=== PATIENT | male | born 1950 | race Caucasian/White ===

== ENCOUNTER 2025-05-12 09:04 | Inpatient (IN) | payer MEDICARE, SELFPAY ==
[2025-05-12] VITALS (11 sets, daily range): BP systolic 100–118; BP diastolic 58–66; PULSE 64–72; TEMP 36.3–36.8; O2SAT 96–100; BMI 25.3; BMI 25.4
--- NOTE | 2025-05-12 09:24 | XR_ITS ---
The [address] [address] Patient Name: THAO BRUCE MRN: [id number] date: 1950 Sex: M Assigned Patient Location: ER Current Patient Location: ED.MAIN Accession/Order Number: [id number] Exam Date: 05/12/2025 09:35 Report Date: 05/12/2025 10:06 At the request of: ЮЛИЯ REYES MD Procedure: XR chest 1V PORTABLE P ERECT CHEST 0916 hours CLINICAL HISTORY: Weakness COMPARISON: None There is slight elevation of the left hemidiaphragm with adjacent atelectasis or scarring. No consolidation is seen. There is slight blunting of the right lateral costophrenic angle and a trace amount of pleural fluid is not excluded without a lateral view. No pneumothorax is seen. The heart is within normal limits. There is no vascular congestion. The osseous structures are intact. There is mild endplate spurring. XR/XR chest 1V IMPRESSION: SLIGHTLY ELEVATED LEFT HEMIDIAPHRAGM WITH ADJACENT ATELECTASIS OR SCARRING. QUESTION OF MINIMAL RIGHT PLEURAL FLUID. Impression dictated by: Gretta Chu M.D. 05/12/2025 10:06 AM Dictation Location: [place] [address] Electronically authenticated by: [id number] Y Date: 05/12/2025 10:06
--- NOTE | 2025-05-12 09:24 | ECG_ITS ---
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 Measurements Intervals [place] Rate: 66 P: 50 MA: 154 QRS: 3 QRSD: 84 T: 36 QT: 394 QTc: 408 Interpretive Statements 1100 Sinus rhythm 9110 normal ECG No previous ECG available for comparison Electronically Signed On 05-12-2025 19:10:29 EST by REGIS SANTANA M.D.
--- NOTE | 2025-05-12 09:25 | ED.GENADUL1 ---
HPI HPI - General Adult General Chief complaint: Weakness Stated complaint: WEAKNESS Time Seen by Provider: 05/12/25 09:08 Source: patient and family Mode of arrival: Wheelchair Limitations: physical limitation History of Present Illness HPI narrative: 74-year-old male presents to the emergency department for a chief complaint of generalized weakness. He could not get up and walk last night. He complains of leg weakness. No fever or vomiting. His appetite has been poor. He has liver disease and is scheduled to see a liver transplant physician in [place]. There was no fall or injury. No complaints of dysuria or vomiting. Related Data Home Medications ?Medication ?Instructions ?Recorded ?Confirmed carvedilol 12.5 mg tablet 12.5 mg PO BID 05/12/25 05/12/25 cetirizine 10 mg capsule (All Day 10 mg PO DAILY PRN allergy symptoms 05/12/25 05/12/25 Allergy (cetirizine)) furosemide 40 mg tablet 40 mg PO DAILY 05/12/25 05/12/25 lactulose 20 gram oral packet 60 ml PO DAILY 05/12/25 05/12/25 metformin 500 mg tablet 500 mg PO BID 05/12/25 05/12/25 pantoprazole 40 mg tablet,delayed 40 mg PO BID 05/12/25 05/12/25 release primidone 50 mg tablet 25 mg PO .QHS 05/12/25 05/12/25 rifaximin 550 mg tablet (Xifaxan) 550 mg PO BID 05/12/25 05/12/25 spironolactone 100 mg tablet 100 mg PO DAILY 05/12/25 05/12/25 Allergies Allergy/AdvReac Type Severity Reaction Status Date / Time No Known Drug Allergies Allergy Verified 05/12/25 09:14 Review of Systems ROS Narrative A ten point review of systems is negative except as noted above. [facility] Medical History (Updated 05/12/25 @ 12:05 by Timur Bonner MD) Alcoholic cirrhosis of liver ?K70.30 - Alcoholic cirrhosis of liver without ascites (ICD-10) Social History Little interest or pleasure in doing things: not at all Feeling down, depressed, or hopeless: not at all Exam Narrative Exam Narrative: Nurses note and vital signs reviewed General:The patient appears in no acute distress. Skin:Warm, dry, no pallor noted.There is no rash noted. Head:Normocephalic, atraumatic Eye: Normal conjunctiva, no drainage Ears, Nose, Mouth, and Throat: oral mucosa is somewhat dry. Cardiovascular:Regular Rate and Rhythm Respiratory:Patient is in no distress, no accessory muscle use, lungs are clear to auscultation, no wheezing, rales or rhonchi Back:non-tender GI: Abdomen is mildly distended. He has 2 easily reducible ventral hernias present. There does not seem to be any tenderness. Musculoskeletal: The patient has no evidence of calf tenderness, no pitting edema, symmetrical pulses noted bilaterally Neurological:A&O, normal speech Psychiatric:Cooperative Constitutional Vital Signs, click to edit/add: Last Vital Signs Temp 98.2 F 05/12/25 09:15 Pulse 69 05/12/25 09:15 Resp 18 05/12/25 09:15 BP 118/66 05/12/25 09:15 Pulse Ox 98 05/12/25 09:15 O2 Del Method Room Air 05/12/25 09:15 Course Vital Signs Vital signs: Vital Signs Temperature 98.2 F 05/12/25 09:15 Pulse Rate 69 05/12/25 09:15 Respiratory Rate 18 05/12/25 09:15 Blood Pressure 118/66 05/12/25 09:15 Pulse Oximetry 98 05/12/25 09:15 Oxygen Delivery Method Room Air 05/12/25 09:15 Temperature 98.2 F 05/12/25 09:15 Pulse Rate 69 05/12/25 09:15 Respiratory Rate 18 05/12/25 09:15 Blood Pressure 118/66 05/12/25 09:15 Pulse Oximetry 98 05/12/25 09:15 Oxygen Delivery Method Room Air 05/12/25 09:15 Medical Decision Making [facility] Narrative Medical decision making narrative: The patient presents with generalized weakness. He was unable to get out of bed last night and his family had difficulty getting him into the car to bring him here. The patient has a long standing issues with sciatica of the left leg and CT of the lumbar spine is pending. His workup is negative. WBC is 9.3 and BUN and creatinine are 41 and 1.3. Ammonia level is 33. LFTs are not significantly elevated and his troponin was negative. His states that she cannot take him home because he cannot walk and the patient will be admitted for observation. Findings were discussed thoroughly. Differential Diagnosis Differential Diagnosis: Anemia, acute kidney injury, dehydration, liver failure Lab Data Lab results reviewed: Yes I reviewed the patient's lab results Labs: Lab Results 05/12/25 05/12/25 05/12/25 Range/Units 09:22 10:29 11:25 WBC 9.3 (4.0-11.0) 10^3/uL RBC 3.12 L (4.70-6.10) 10^6/uL Hgb 10.3 L (14.0-18.0) g/dL Hct 29.8 L (42.0-54.0) % MCV 95.5 H (80.0-94.0) fL MCH 33.0 (25.9-34.0) pg MCHC 34.6 (29.9-35.2) g/dL RDW 14.2 (11.0-15.0) % Plt Count 73 L (150-450) 10^3/uL MPV 11.9 (9.5-13.5) fL Neut % (Auto) 85.2 H (43.0-75.0) % Lymph % (Auto) 5.4 L (20.5-60.0) % [place] % (Auto) 8.0 (1.7-12.0) % Eos % (Auto) 0.0 L (0.9-7.0) % Baso % (Auto) 0.2 (0.2-2.0) % Neut # (Auto) 7.9 H (1.4-6.5) 10^3/uL Lymph # (Auto) 0.5 L (1.2-3.8) 10^3/uL [place] # (Auto) 0.7 (0.3-0.8) 10^3/uL Eos # (Auto) 0.0 (0.0-0.7) 10^3/uL Baso # (Auto) 0.0 (0.0-0.1) 10^3/uL Abs Immat Gran (auto) 0.11 H (0.00-0.03) 10^3/uL Imm/Tot Granulo (auto) 1.2 H (0.0-0.5) % Sodium 124 L* (136-145) mmol/L Potassium 5.6 H (3.5-5.1) mmol/L Chloride 95 L (98-107) mmol/L Carbon Dioxide 20.2 L (21.0-32.0) mmol/L Anion Gap 14.4 BUN 41.0 H (7.0-18.0) mg/dL Creatinine 1.31 H (0.70-1.30) mg/dL Est GFR ( Amer) >60 (>=60 mL/min/1.73m^2) Est GFR (Non-Af Amer) 53 L (>=60 mL/min/1.73m^2) BUN/Creatinine Ratio 31.3 Glucose 183 H (74-106) mg/dL Calcium 8.7 (8.5-10.1) mg/dL Total Bilirubin 2.6 H (0.2-1.0) mg/dL Direct Bilirubin 1.1 H* (0.0-0.2) mg/dL AST 40 H (15-37) U/L ALT 43 (16-63) U/L Alkaline Phosphatase 175 H (46-116) U/L Ammonia 33 H (11-32) umol/L Troponin I High Sens 6.2 (4.0-76.1) pg/mL Total Protein 7.3 (6.4-8.2) g/dL Albumin 1.9 L (3.4-5.0) g/dL Globulin 5.4 g/dL Albumin/Globulin Ratio 0.4 Amylase 56 (25-115) U/L Lipase 66.0 (16.0-77.0) U/L Urine Color Yellow (YELLOW) Urine Clarity Clear (CLEAR) Urine pH 6.0 (5.0-9.0) Ur Specific [place] 1.020 (1.005-1.025) Urine Protein Negative (NEG/TRACE) mg/dL Urine Glucose (UA) Negative (NEGATIVE) mg/dL Urine Ketones Negative (NEGATIVE) mg/dL Urine Occult Blood Negative (NEGATIVE) Urine Nitrite Negative (NEGATIVE) Urine Bilirubin Negative (NEGATIVE) Urine Urobilinogen 0.2 (0.2-1.0) EU/dL Ur Leukocyte Esterase Negative (NEGATIVE) Urine RBC 0-2 (0-2) #/HPF Urine WBC 0-2 A (NONE SEEN) #/HPF Ur Squamous Epith Cells Rare (NONE/RARE) #/LPF Urine Crystals None seen (None Seen) #/HPF Urine Bacteria None seen (NONE SEEN) #/HPF Urine Casts Seen A (NONE SEEN) #/LPF Hyaline Casts Rare Urine Mucus None seen (NONE SEEN) Imaging Data Chest x-ray: Radiologist's impression: ITS Impressions Chest X-Ray 05/12/25 09:24 IMPRESSION: SLIGHTLY ELEVATED LEFT HEMIDIAPHRAGM WITH ADJACENT ATELECTASIS OR SCARRING. QUESTION OF MINIMAL RIGHT PLEURAL FLUID. Impression dictated by: Gretta Chu M.D. 05/12/2025 10:06 AM Dictation Location: [place] [address] Electronically authenticated by: [id number] Y Date: 05/12/2025 10:06 ECG Data Attestation: I personally reviewed and interpreted this ECG as follows: (EKG on my interpretation shows sinus rhythm with rate of 66 and no acute change) Discharge Plan Discharge Chief Complaint: Weakness Clinical Impression: Generalized weakness, Hyponatremia Patient Disposition: Admitted as Observation Time of Disposition Decision: 12:02 Condition: Fair
--- NOTE | 2025-05-12 09:36 | PC.NURSE ---
pt now willing to get into gown, warm banket given
[2025-05-12 09:41] LABS: Hematocrit 29.8 % (42.0-54.0); Hemoglobin 10.3 g/dL (14.0-18.0); Immature Granulocytes Abs Auto 0.11 10^3/uL (0.00-0.03); Immature Granulocytes Pct Auto 1.2 % (0.0-0.5); Lymphocytes Absolute Auto 0.5 10^3/uL (1.2-3.8); Mean Corpuscular HGB Conc 34.6 g/dL (29.9-35.2); Mean Corpuscular Hemoglobin 33.0 pg (25.9-34.0); Mean Corpuscular Volume 95.5 fL (80.0-94.0); Red Blood Count 3.12 10^6/uL (4.70-6.10); White Blood Count 9.3 10^3/uL (4.0-11.0)
[2025-05-12 09:52] LABS: Anion Gap 14.4; Blood Urea Nitrogen 41.0 mg/dL (7.0-18.0); Calcium 8.7 mg/dL (8.5-10.1); Carbon Dioxide 20.2 mmol/L (21.0-32.0); Chloride 95 mmol/L (98-107); Estimated GFR (African America >60 (>=60 mL/min/1.73m^2); Estimated GFR (Non-African Ame 53 (>=60 mL/min/1.73m^2); Glucose 183 mg/dL (74-106); Potassium 5.6 mmol/L (3.5-5.1)
[2025-05-12 10:04] LABS: Platelet Count 73 10^3/uL (150-450)
[2025-05-12 10:06] LABS: Alanine Aminotransferase 43 U/L (16-63); Albumin Globulin Ratio 0.4; Albumin Level 1.9 g/dL (3.4-5.0); Alkaline Phosphatase 175 U/L (46-116); Amylase 56 U/L (25-115); Aspartate Amino Transferase 40 U/L (15-37); Globulin 5.4 g/dL; Lipase 66.0 U/L (16.0-77.0); Total Protein 7.3 g/dL (6.4-8.2)
[2025-05-12 10:14] LABS: Sodium 124 mmol/L (136-145)
[2025-05-12 10:47] LABS: Ammonia 33 umol/L (11-32)
--- NOTE | 2025-05-12 11:07 | PC.NURSE ---
pt resting comfortably in bed, warm blanket given. using the urinal
[2025-05-12 11:32] LABS: Glucose Urine UA NEGATIVE (NEGATIVE)
[2025-05-12 11:42] LABS: Cast Seen? SEEN #/LPF (NONE SEEN); Crystals Seen? None Seen #/HPF (None Seen)
--- NOTE | 2025-05-12 12:03 | CT_ITS ---
The [place] [address] Patient Name: THAO BRUCE MRN: [id number] date: 1950 Sex: M Assigned Patient Location: ER Current Patient Location: Accession/Order Number: [id number] Exam Date: 05/12/2025 12:11 Report Date: 05/12/2025 13:04 At the request of: ЮЛИЯ REYES MD Procedure: CT lumbar spine wo con CT lumbar spine wo con 05/12/2025 12:16 PM History:Fall 2 weeks ago. Weakness. TECHNIQUE: Multi detector CT axial slices of the lumbar spine were obtained without IV contrast. Volumetric acquisition sagittal, coronal, and 3-D reconstructions were performed and reviewed on a separate workstation. CT was performed with one or more of the following dose reduction techniques: Automated exposure control, adjustment of the mA and/or kV according to patient size, or use of iterative reconstruction technique. COMPARISON: None FINDINGS: Vertebral body heights appear maintained. No fracture. Grade 1 spondylolisthesis of L5 on S1 due to bilateral pars defects with severe disc space narrowing. Scattered endplate and facet joint degenerative changes with moderate disc space narrowing L4-L5. Transverse processes appear unremarkable. SI joints demonstrate degenerative change. No paraspinal mass. Retroperitoneum demonstrates a partially visualized cyst involving the right kidney. CT/CT lumbar spine wo con IMPRESSION: Degenerative changes involving the lumbar spine worst at L4-L5 and L5-S1 without acute bony process. Impression dictated by: Asad Hewitt Jr., D.OCorina 05/12/2025 1:04 PM Dictation Location: [place] [address] Electronically authenticated by: [id number] Y Date: 05/12/2025 13:04
--- NOTE | 2025-05-12 14:19 | CA_ITS ---
Patient Name: THAO BRUCE MR#: [id number] : 1950 Exam Date: 05/12/2025 Ordering Doctor: CAMERON ARRIAGA ECHOCARDIOGRAM REPORT PROCEDURE: CA ECHO DOPPLER COMPLETE INDICATIONS: Cirrhosis COMPARISON: None. DESCRIPTION: COMPLETE ECHOCARDIOGRAM Real-time transthoracic echocardiography with 2D, M-mode, spectral and color flow Doppler performed. QUALITY: Technical quality was good. LEFT VENTRICLE: Normal chamber size. Normal left ventricular wall thickness. LV EF: Global left ventricular systolic function is normal; visually estimated ejection fraction is 60 to 65%. Unable to assess regional wall motion abnormalities; consider contrast study for better delineation of endocardial borders. DIASTOLIC: Diastolic function is indeterminate. ATRIAL SEPTUM: Inadequately seen. LEFT ATRIUM: Mild dilatation. RIGHT ATRIUM: Mild dilatation. RIGHT VENTRICLE: Normal chamber size. Normal systolic function. TRICUSPID VALVE: Normal mobility and thickness. No stenosis with mild regurgitation. Doppler studies reveal mildly (35-45) elevated right-sided pressures. RVSP 36 mmHg MITRAL VALVE: Normal mobility and thickness. No evidence of mitral valve stenosis. There is no mitral annular calcification. No mitral regurgitation. AORTIC VALVE: Normal trileaflet appearance. Thickened aortic valve. Mildly diminished mobility. No evidence of aortic valve stenosis. No aortic regurgitation. AORTIC ROOT: Normal diameter and appearance. PULMONIC VALVE: Normal thickness and mobility. No stenosis. No regurgitation. PERICARDIUM: No evidence of pericardial effusion. IVC: Not well visualized. CONCLUSION: 1. Global ventricular systolic function is normal; visually estimated ejection fraction is 60 to 65% 2. The right ventricle is normal in size and systolic function 3. Biatrial dilatation 4. Mild tricuspid regurgitation 5. Mildly elevated right ventricular systolic pressure; RVSP 36 mmHg Adult Echocardiography Procedure Report Left Ventricle LVEDD (3.7 - 5.6 cm): 5.08 cm LVESD (2.2 - 4.0 cm): 3.41 cm LVIVS thickness (0.6 - 1.2 cm): 1.03 cm LVPW thickness (0.5 - 1.0 cm): 1.02 cm e': 0.10 m/s E - e': 5.05 LVOT Max Gradient: 2.03 mm[Hg] LVOT Area (cm2): 0.71 m/s Peak Velocity (LVOT): 0.71 m/s Mean Velocity (LVOT): 0.49 m/s LVOT Diameter 2.30 cm Left Atrium LA Volume Index (2D A2C): 36.56 ml/m2 Left Atrium Systolic Dimension: 3.64 cm Mitral Valve MV E to A Ratio: 0.75 Mitral Valve A-Wave Peak Velocity: 0.69 m/s Mitral Valve E-Wave Peak Velocity: 0.52 m/s Right Ventricle Aorta AO Root Diam: 3.35 cm Aortic Valve AoV Area (Peak Francisco Javier): 2.07 cm2, 2.07 cm2 AoV Area (VTI): 2.77 cm2, 2.77 cm2 Peak Velocity(Antegrade Flow): 1.43 m/s Peak Gradient(Antegrade Flow): 8.23 mm[Hg] Mean Velocity(Antegrade Flow): 0.94 m/s Mean Gradient(Antegrade Flow): 4.10 mm[Hg] Velocity Time Integral: 28.48 cm Tricuspid Valve Peak Velocity (Regurgitant Flow): 2.43 m/s, 2.89 m/s Pulmonic Valve Mean Gradient: 1.63 mm[Hg] Mean Velocity: 0.60 m/s Peak Velocity: 0.88 m/s Peak Gradient: 3.06 mm[Hg] Right Atrium Right Atrium Systolic Pressure: 45.28 ml, 45.28 ml Dictated by: José Miguel Cueva M.D. on 05/12/2025 at 17:06 Approved by: José Miguel Cueva M.D. on 05/12/2025 at 17:10
[2025-05-12 15:21] LABS: Magnesium 1.7 mg/dL (1.8-2.4)
[2025-05-12] MEDS: FUROSEMIDE 20 MG/2 ML VIAL IVP (16:25)
[2025-05-12] MEDS: SODIUM CHLORIDE 1,000 MG TABLET 2000 MG PO ×2 (16:25→21:06)
[2025-05-12] MEDS: SODIUM POLYSTYRENE SULFON 15 GM/60 ML ORAL.SUSP KAYEXALATE PO (16:26)
[2025-05-12] MEDS: ALBUMIN HUMAN 25 GM/100 ML PREMIX IV (16:46)
[2025-05-12] MEDS: MIDODRINE HCL 5 MG TABLET 10 MG PO (16:47)
[2025-05-12] MEDS: MIDODRINE HCL 5 MG TABLET PO (18:04)
[2025-05-12] MEDS: CARVEDILOL 3.125 MG TABLET PO (21:05)
[2025-05-12] MEDS: LACTULOSE 10 GM/15 ML UD CUP 20 GM PO (21:05)
[2025-05-12] MEDS: PRIMIDONE 50 MG TABLET 25 MG PO (21:05)
[2025-05-12] MEDS: MAGNESIUM SULFATE IN WATER 2 GM/50 ML PREMIX IV (21:06)
[2025-05-12] MEDS: RIFAXIMIN 550 MG TABLET PO (21:06)
[2025-05-12] MEDS: PANTOPRAZOLE SODIUM 40 MG TABLET.DR PO (21:06)
[2025-05-12 21:59] LABS: Anion Gap 10.1; Blood Urea Nitrogen 39.0 mg/dL (7.0-18.0); Calcium 8.7 mg/dL (8.5-10.1); Carbon Dioxide 22.3 mmol/L (21.0-32.0); Chloride 96 mmol/L (98-107); Estimated GFR (African America >60 (>=60 mL/min/1.73m^2); Estimated GFR (Non-African Ame >60 (>=60 mL/min/1.73m^2); Glucose 200 mg/dL (74-106); Potassium 4.4 mmol/L (3.5-5.1)
[2025-05-12 22:02] LABS: Sodium 124 mmol/L (136-145)
[2025-05-13] VITALS (20 sets, daily range): BP systolic 117–138; BP diastolic 61–70; PULSE 60–90; TEMP 36.8–37.2; O2SAT 94–97
[2025-05-13 00:34] LABS: A. calcoaceticus-baumannii Cpx NOT DETECTED (NOT DETECTE); Bacteroides fragilis NOT DETECTED (NOT DETECTE); Enterobacterales NOT DETECTED (NOT DETECTE); Enterococcus faecalis NOT DETECTED (NOT DETECTE); Enterococcus faecium NOT DETECTED (NOT DETECTE); Klebsiella aerogenes NOT DETECTED (NOT DETECTE); Klebsiella pneumoniae group NOT DETECTED (NOT DETECTE); Proteus spp. NOT DETECTED (NOT DETECTE); Salmonella spp. NOT DETECTED (NOT DETECTE); Source BLOOD; Staphylococcus epidermidis NOT DETECTED (NOT DETECTE); Staphylococcus lugdunensis NOT DETECTED (NOT DETECTE); Staphylococcus spp. NOT DETECTED (NOT DETECTE); Streptococcus pyogenes NOT DETECTED (NOT DETECTE)
[2025-05-13 00:35] LABS: Candida auris NOT DETECTED (NOT DETECTE); Candida glabrata NOT DETECTED (NOT DETECTE); Serratia marcescens NOT DETECTED (NOT DETECTE); Stenotrophomonas maltophilia NOT DETECTED (NOT DETECTE)
[2025-05-13 02:04] LABS: Streptococcus spp. DETECTED (NOT DETECTE)
[2025-05-13] MEDS: VANCOMYCIN HCL 1,250 MG in 0.9 % SODIUM CHLORIDE 250 ML 166.667 MG IV (04:48)
[2025-05-13] MEDS: LACTULOSE 10 GM/15 ML UD CUP 20 GM PO ×3 (05:56→22:55)
[2025-05-13] MEDS: SODIUM CHLORIDE 1,000 MG TABLET 2000 MG PO ×3 (05:57→22:54)
[2025-05-13 06:39] LABS: Hematocrit 25.4 % (42.0-54.0); Hemoglobin 9.1 g/dL (14.0-18.0); Mean Corpuscular HGB Conc 35.8 g/dL (29.9-35.2); Mean Corpuscular Hemoglobin 33.6 pg (25.9-34.0); Mean Corpuscular Volume 93.7 fL (80.0-94.0); Platelet Count 56 10^3/uL (150-450); Red Blood Count 2.71 10^6/uL (4.70-6.10); White Blood Count 5.5 10^3/uL (4.0-11.0)
[2025-05-13 06:55] LABS: INR 1.50; Prothrombin Time 15.3 sec (9.0-11.6)
[2025-05-13 07:09] LABS: Alanine Aminotransferase 43 U/L (16-63); Albumin Globulin Ratio 0.4; Albumin Level 1.9 g/dL (3.4-5.0); Alkaline Phosphatase 133 U/L (46-116); Anion Gap 9.4; Aspartate Amino Transferase 37 U/L (15-37); Blood Urea Nitrogen 34.0 mg/dL (7.0-18.0); Calcium 8.4 mg/dL (8.5-10.1); Carbon Dioxide 24.2 mmol/L (21.0-32.0); Chloride 97 mmol/L (98-107); Estimated GFR (African America >60 (>=60 mL/min/1.73m^2); Estimated GFR (Non-African Ame >60 (>=60 mL/min/1.73m^2); Globulin 4.6 g/dL; Glucose 147 mg/dL (74-106); Magnesium 2.0 mg/dL (1.8-2.4); Potassium 4.6 mmol/L (3.5-5.1); Sodium 126 mmol/L (136-145); Thyroid Stimulating Hormone 2.261 uIU/mL (0.358-3.740); Total Protein 6.5 g/dL (6.4-8.2)
--- NOTE | 2025-05-13 08:00 | ECG_ITS ---
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 Measurements Intervals [place] Rate: 66 P: 37 SD: 157 QRS: -7 QRSD: 110 T: 54 QT: 416 QTc: 439 Interpretive Statements SINUS RHYTHM LOW QRS VOLTAGE IN PRECORDIAL LEADS [QRS DEFLECTION < 1.0 mV IN CHEST LEADS] NONSPECIFIC T-WAVE ABNORMALITY Abnormal ECG Compared to ECG 05/12/2025 09:17:38 Low QRS voltage now present T-wave abnormality now present Electronically Signed On 05-13-2025 8:48:52 EST by REGIS SANTANA M.D.
[2025-05-13] MEDS: MIDODRINE HCL 5 MG TABLET PO ×3 (08:16→16:19)
[2025-05-13] MEDS: PANTOPRAZOLE SODIUM 40 MG TABLET.DR PO ×2 (08:16→22:55)
[2025-05-13] MEDS: CARVEDILOL 3.125 MG TABLET PO ×2 (08:16→22:54)
[2025-05-13] MEDS: RIFAXIMIN 550 MG TABLET PO ×2 (08:16→22:54)
--- NOTE | 2025-05-13 09:44 | PM.HP ---
HPI H&P: HPI History of Present Illness Chief complaint: WEAKNESS GENERALIZED WEAKNESS HYPONATREMIA Narrative: Mr. Sandoval is a 74-year-old gentleman who came to the emergency room not feeling well. Progressive weakness and fatigue over the last few days. Patient is known to have liver cirrhosis believed to be caused by previous heavy alcohol consumption. Patient is on typical medication for liver cirrhosis. Patient was found to have hyponatremia with a sodium level at 124. Patient also was found to have hypokalemia with potassium at 5.6, degree of metabolic acidosis and TATYANA which may be contributing to his generalized weakness and subjective fatigue and sickness. Blood cultures completed in the emergency room department came back positive for Streptococcus around 4 AM. Patient was started on vancomycin and ceftriaxone. Patient denies any chest or abdominal pain. No nausea or vomiting. Loss of appetite. Opioid HPI Opioid Management Most Recent Pain and Opioid Data: Last Pain Assessment Today, 09:00 Last ORT Total Score 3 05/12/25, 13:09 Last ORT Risk Category Low Risk 05/12/25, 13:09 [facility] Medical History (Updated 05/12/25 @ 12:05 by Timur Bonner MD) Alcoholic cirrhosis of liver ?K70.30 - Alcoholic cirrhosis of liver without ascites (ICD-10) Social History Highest level of school completed/degree received: high school graduate Little interest or pleasure in doing things: not at all Feeling down, depressed, or hopeless: not at all Meds Home Medications and Allergies Home Medications ?Medication ?Instructions ?Recorded ?Confirmed ?Type benzonatate 100 mg capsule 100 mg PO TID PRN cough 05/12/25 05/12/25 History carvedilol 3.125 mg tablet (Coreg) 3.125 mg PO BID 05/12/25 05/12/25 History cetirizine 10 mg capsule (All Day 10 mg PO DAILY PRN allergy symptoms 05/12/25 05/12/25 History Allergy (cetirizine)) furosemide 40 mg tablet 40 mg PO DAILY 05/12/25 05/12/25 History lactulose 20 gram oral packet 30 ml PO TID 05/12/25 05/12/25 History metformin 500 mg tablet 500 mg PO BID 05/12/25 05/12/25 History nystatin 100,000 unit/gram topical 1 applic topical DAILY 05/12/25 05/12/25 History powder pantoprazole 40 mg tablet,delayed 40 mg PO BID 05/12/25 05/12/25 History release prednisone 20 mg tablet 60 mg PO DAILY 05/12/25 05/12/25 History primidone 50 mg tablet 25 mg PO .QHS 05/12/25 05/12/25 History rifaximin 550 mg tablet (Xifaxan) 550 mg PO BID 05/12/25 05/12/25 History spironolactone 100 mg tablet 100 mg PO DAILY 05/12/25 05/12/25 History Allergies Allergy/AdvReac Type Severity Reaction Status Date / Time No Known Drug Allergies Allergy Verified 05/12/25 09:14 Exam Narrative Exam Narrative: [pt is awake and alert. oriented to place, time and person, patient is cachectic and frail in appearance. HEENT: Pale conjunctiva and NL buccal mucosa. Bitemporal muscle wasting Neck: Supple, no tenderness Endocrine: No Thyromegaly. Vascular: No JVD or carotid bruit. Lymphatic: No cervical lymphadenopathy. Chest: CTA no DTP. Heart RRR, no extra sound or murmur. Abd: Soft, no tenderness, no rebound and no rigidity. Increase abd girth therefore clinically I could not exclude the possibility of intra abd mass or organomegaly. LE: No cyanosis or clubbing, no varices or edema. Upper and lower extremities muscle wasting and atrophy. Neuro: A A O. Nl speech, cognition is slightly impaired. Patient is able to answer yes/no questions and engage in simple conversation. Unable to engage in complex conversation. He is able to move his extremities symmetrically. []] Constitutional Vital Signs, click to edit/add: Last Vital Signs Temp 98.9 F 05/13/25 08:00 Pulse 73 05/13/25 08:00 Resp 18 05/13/25 08:00 BP 118/65 05/13/25 08:16 Pulse Ox 95 05/13/25 08:00 O2 Del Method Room Air 05/13/25 08:00 Results Labs Labs: Short CBC 05/12/25 05/13/25 Range/Units 09:22 06:02 WBC 9.3 5.5 (4.0-11.0) 10^3/uL Hgb 10.3 L 9.1 L (14.0-18.0) g/dL Hct 29.8 L 25.4 L (42.0-54.0) % Plt Count 73 L 56 L (150-450) 10^3/uL BMP 05/12/25 05/12/25 05/13/25 09:22 21:33 06:02 Sodium 124 L* 124 L* 126 L Potassium 5.6 H 4.4 4.6 Chloride 95 L 96 L 97 L Carbon Dioxide 20.2 L 22.3 24.2 BUN 41.0 H 39.0 H 34.0 H Creatinine 1.31 H 1.03 1.04 Glucose 183 H 200 H 147 H Calcium 8.7 8.7 8.4 L Liver Function 05/12/25 05/13/25 Range/Units 09:22 06:02 Total Bilirubin 2.6 H 2.2 H (0.2-1.0) mg/dL Direct Bilirubin 1.1 H* 1.1 H* (0.0-0.2) mg/dL AST 40 H 37 (15-37) U/L ALT 43 43 (16-63) U/L Alkaline Phosphatase 175 H 133 H (46-116) U/L Albumin 1.9 L 1.9 L (3.4-5.0) g/dL Urine 05/12/25 Range/Units 11:25 Urine Color Yellow (YELLOW) Urine Clarity Clear (CLEAR) Urine pH 6.0 (5.0-9.0) Ur Specific [place] 1.020 (1.005-1.025) Urine Protein Negative (NEG/TRACE) mg/dL Urine Glucose (UA) Negative (NEGATIVE) mg/dL Assessment and Plan Assessment and Plan (1) Hyponatremia: (2) Generalized weakness: Plan Hyponatremia which is likely caused by aggressive diuresis. Hypovolemic hyponatremia. TATYANA and hyperkalemia as well as metabolic acidosis. All believed to be caused by aggressive diuresis. Patient is also on metformin that could have caused lactic acidosis I had accepted to admit patient to the medical floor. Requested TSH rule out hypothyroidism, cortisol level rule out adrenal insufficiency, urine and serum osmolality. Start patient on water restriction. Start the patient on sodium chloride tablet. The goal is for slow and gradual correction of his hyponatremia Kidney function had returned to baseline. Hyperkalemia had resolved. Metabolic acidosis had improved. Streptococcus bacteremia. No obvious source. Urine is clean. Patient does not have respiratory symptoms. I suspect that patient may have SBP. Patient does not have any tenderness in the abdomen. Very minimal ascitic fluid if any. I started patient on ceftriaxone and vancomycin Risk of bowel perforation is high given the small amount of ascites Repeat blood culture in 48 hours Hypomagnesemia Magnesium supplementation. Phosphorus level is normal. Generalized weakness and fatigue, likely caused by his acute metabolic derangement as listed above. I could not exclude the possibility of primary [employer]OR [employer]ISING insult Requested CT head rule out acute intracranial process. Liver cirrhosis associated with elevated bilirubin. Baseline bilirubin is 2. Thrombocytopenia. Baseline platelets of 70. Patient is on a combination of cirrhosis medication including Xifaxan, spironolactone, lactulose and Coreg Hold diuretics and metformin due to his acute metabolic derangement as listed above. Continue digoxin and Coreg Added albumin and midodrine to help reduce risk having hepatorenal syndrome. Cachexia, frailty, failure to thrive, muscle wasting and atrophy, moderate protein calorie malnutrition Likely caused by chronic liver cirrhosis Avoid excessive protein oral intake that potentially put him at risk having encephalopathy. Patient may need cachexia and weight loss workup including ruling out the possibility of underlying malignancy to be handled electively by PCP in the outpatient setting. Anemia, no evidence of acute blood loss. Likely related to ongoing liver cirrhosis Patient will likely require to have anemia workup to be done in the outpatient setting to be handled by PCP in collaboration with other needed outpatient providers. This may include but not limited to EGD, colonoscopy, referral to see hematology and other needed age-appropriate cancer screening. Chronic, subacute medical conditions not listed above, abnormal labs and imaging, incidental findings seen on labs and or imaging. These would need to be addressed. Could be addressed later on or in the outpatient setting by PCP collaboration with other needed outpatient providers when time and condition are appropriate. I discussed this case with his . I provided her information about his disease, prognosis, expectation and trajectory. stated that Renetta has had a gradual decline in cognition and function over the last year or so. She seems to be leaning toward comfort care approach. Urinary Catheter Management Urinary Catheter Management Straight: Cath placed during this visit: yes Urethral indwelling: No Insertion date: 05/12/25 Insertion time: 11:20
--- NOTE | 2025-05-13 09:53 | CT_ITS ---
The [address] [address] Patient Name: THAO BRUCE MRN: [id number] date: 1950 Sex: M Assigned Patient Location: [place] Current Patient Location: [place] Accession/Order Number: [id number] Exam Date: 05/13/2025 10:30 Report Date: 05/13/2025 10:46 At the request of: CAMERON ARRIAGA MD Procedure: CT head/brain wo con CT BRAIN WITHOUT CONTRAST: CLINICAL HISTORY: Weakness COMPARISON: None TECHNIQUE: Contiguous axial unenhanced images were obtained through the brain. This CT exam was performed using one or more following dose reduction techniques: Automated exposure control, adjustment of the mA and/or kV according to patient size, or use of iterative reconstruction technique. FINDINGS: There is no evidence of midline shift, intra or extra-axial fluid collection, hemorrhage or CT evidence of stroke. Cortical atrophy with chronic microvascular ischemic changes. Posterior fossa appears unremarkable. Visualized intraorbital contents demonstrate no acute findings. Visualized paranasal sinuses are clear. The surrounding soft tissues are normal. CT/CT head/brain wo con IMPRESSION: NO ACUTE INTRACRANIAL ABNORMALITY. Impression dictated by: Asad Hewitt Jr., D.O. 05/13/2025 10:46 AM Dictation Location[facility] Electronically authenticated by: [id number] Y Date: 05/13/2025 10:46
[2025-05-13] MEDS: UREA 15 GM POWD.PACK PO (12:04)
[2025-05-13 20:34] LABS: Anion Gap 6.2; Blood Urea Nitrogen 36.0 mg/dL (7.0-18.0); Calcium 7.9 mg/dL (8.5-10.1); Carbon Dioxide 26.0 mmol/L (21.0-32.0); Chloride 100 mmol/L (98-107); Estimated GFR (African America >60 (>=60 mL/min/1.73m^2); Estimated GFR (Non-African Ame >60 (>=60 mL/min/1.73m^2); Glucose 120 mg/dL (74-106); Potassium 4.2 mmol/L (3.5-5.1); Sodium 128 mmol/L (136-145)
[2025-05-13] MEDS: PRIMIDONE 50 MG TABLET 25 MG PO (22:54)
[2025-05-14] VITALS (19 sets, daily range): BP systolic 103–124; BP diastolic 48–65; PULSE 58–89; TEMP 36.5–36.9; O2SAT 93–98
[2025-05-14] MEDS: SODIUM CHLORIDE 1,000 MG TABLET 2000 MG PO (05:11)
[2025-05-14] MEDS: LACTULOSE 10 GM/15 ML UD CUP 20 GM PO ×3 (05:11→22:37)
[2025-05-14 06:04] LABS: Hematocrit 26.6 % (42.0-54.0); Hemoglobin 9.2 g/dL (14.0-18.0); Mean Corpuscular HGB Conc 34.6 g/dL (29.9-35.2); Mean Corpuscular Hemoglobin 33.0 pg (25.9-34.0); Mean Corpuscular Volume 95.3 fL (80.0-94.0); Platelet Count 57 10^3/uL (150-450); Red Blood Count 2.79 10^6/uL (4.70-6.10); White Blood Count 3.9 10^3/uL (4.0-11.0)
[2025-05-14 06:17] LABS: Alanine Aminotransferase 43 U/L (16-63); Albumin Globulin Ratio 0.4; Albumin Level 1.8 g/dL (3.4-5.0); Alkaline Phosphatase 119 U/L (46-116); Anion Gap 11.9; Aspartate Amino Transferase 44 U/L (15-37); Blood Urea Nitrogen 30.0 mg/dL (7.0-18.0); Calcium 8.4 mg/dL (8.5-10.1); Carbon Dioxide 24.4 mmol/L (21.0-32.0); Chloride 101 mmol/L (98-107); Estimated GFR (African America >60 (>=60 mL/min/1.73m^2); Estimated GFR (Non-African Ame >60 (>=60 mL/min/1.73m^2); Globulin 4.6 g/dL; Glucose 141 mg/dL (74-106); Potassium 4.3 mmol/L (3.5-5.1); Sodium 133 mmol/L (136-145); Total Protein 6.4 g/dL (6.4-8.2)
--- NOTE | 2025-05-14 08:30 | CM.NOTE ---
ROunds made with Dr. Mesa, discussed plan of care with pt and . Pt will have CT scan of abdomen today. No discharge, continue treatment as ordered. PT and OT recommend skilled therapy at discharge.
[2025-05-14] MEDS: PANTOPRAZOLE SODIUM 40 MG TABLET.DR PO ×2 (08:44→22:37)
[2025-05-14] MEDS: MIDODRINE HCL 5 MG TABLET PO ×3 (08:44→17:42)
[2025-05-14] MEDS: RIFAXIMIN 550 MG TABLET PO ×2 (08:45→22:37)
[2025-05-14] MEDS: CARVEDILOL 3.125 MG TABLET PO ×2 (08:45→22:37)
--- NOTE | 2025-05-14 09:56 | SWNOTE1 ---
JULIAN spoke to CM and reviewed therapy notes and the recommendations are SNF. SW stopped in room and spoke with pt. Pt's was down getting food/coffee. Pt live at home with . He has a walker and cane at home. He has been using his walker. Pt has no services coming in at this time. JULIAN spoke with pt about the recommendations of a short term skilled stay at nursing facility. Pt voiced he wished his was in room to discuss. Pt's entered room at this time. SW explained the recommendations of SNF for pt to get stronger prior to going home. Pt's spoke with pt about this. They are both in agreement. JULIAN did explained Medicare days for SNF to them both. JULIAN offered a list from Medicare.gov with star ratings, but pt's stated they would like the [facility]. SW to call the [facility] to see if they have openings. JULIAN called [facility] 2x, no answer. JULIAN messaged Bebeto at the [facility], she is not there today, but can send referral to email. JULIAN sent referral to Bebeto at [facility], securely. Referral sent to Beb[facility] at [facility]. Referral included face sheet, ED note, H&P, provider notes, case management report, nursing notes, diagnostic imaging, med list, and PT/OT notes.
--- NOTE | 2025-05-14 10:16 | CT_ITS ---
The [address] [address] Patient Name: THAO BRUCE MRN: [id number] date: 1950 Sex: M Assigned Patient Location: MS Current Patient Location: MS Accession/Order Number: [id number] Exam Date: 05/14/2025 12:05 Report Date: 05/14/2025 12:55 At the request of: CAMERON ARRIAGA MD Procedure: CT abdomen pelvis w con CT ABDOMEN AND PELVIS WITH INTRAVENOUS CONTRAST: CLINICAL HISTORY: Bacteremia r/o intra abd infection source. hx cirr COMPARISON: None TECHNIQUE: Spiral images were obtained through the abdomen and pelvis following the administration of intravenous contrast. This CT exam was performed using one or more following dose reduction techniques: Automated exposure control, adjustment of the mA and/or kV according to patient size, or use of iterative reconstruction technique. FINDINGS: Lung Bases: [Trace pleural effusions with adjacent atelectasis.] Organs:The spleen is partially visualized on today's study but appears enlarged. Cirrhotic liver. Cholelithiasis. There is cavernous transformation of the portal vein consistent with thrombosis. Pancreas and adrenal glands appear unremarkable. No enhancing renal mass or hydronephrosis. Abdominal aorta appears normal in caliber.[ GI: Stomach is grossly unremarkable. Small bowel appears nondilated. Two ventral hernias are noted containing uncomplicated small bowel. Right hemicolectomy changes with diffuse wall thickening involving the remaining colon.[ Pelvis:[Urinary bladder is grossly unremarkable. Prostate gland normal in size.] Peritoneum/Retroperitoneum:No free air. No lymphadenopathy. Moderate amount of ascites mostly which appears loculated within the right upper quadrant.[ Abd wall/Bones:Body wall anasarca. Osseous structures demonstrate degenerative change. Grade 1 spondylolisthesis of L5 on S1 due to bilateral pars defects.[ CT/CT abdomen pelvis w con IMPRESSION: Cirrhotic liver with portal vein thrombosis, cholelithiasis and splenomegaly. Moderate ascites most of which appears loculated involving the right upper quadrant. Trace bilateral pleural effusions and body wall anasarca likely related to fluid overload. Right hemithorax likely changes with diffuse wall thickening involving the right colon. Colitis is suspected. Impression dictated by: Asad Hewitt Jr., D.OCorina 05/14/2025 12:55 PM Dictation Location: [place] [address] Electronically authenticated by: [id number] Y Date: 05/14/2025 12:55
--- NOTE | 2025-05-14 10:19 | P.PN_ITS ---
Progress Note: Subjective Subjective Interval history: Patient is feeling better. His stated that he looks better. He is more awake and coherent. He denies any pain or discomfort. Just generalized weakness and fatigue. Exam Narrative Exam Narrative: [pt is awake and alert. oriented to place, time and person, patient is cachectic and frail in appearance. HEENT: Pale conjunctiva and NL buccal mucosa. Bitemporal muscle wasting Neck: Supple, no tenderness Endocrine: No Thyromegaly. Vascular: No JVD or carotid bruit. Lymphatic: No cervical lymphadenopathy. Chest: CTA no DTP. Heart RRR, no extra sound or murmur. Abd: Soft, no tenderness, no rebound and no rigidity. Increase abd girth therefore clinically I could not exclude the possibility of intra abd mass or organomegaly. LE: No cyanosis or clubbing, no varices or edema. Upper and lower extremities muscle wasting and atrophy. Neuro: A A O. Nl speech, cognition is slightly impaired. Patient is able to answer yes/no questions and engage in simple conversation. Unable to engage in complex conversation. He is able to move his extremities symmetrically. []] Constitutional Vital Signs, click to edit/add: Last Vital Signs Temp 98.0 F 05/14/25 08:03 Pulse 67 05/14/25 09:56 Resp 16 05/14/25 04:00 BP 103/55 05/14/25 08:03 Pulse Ox 94 L 05/14/25 08:03 O2 Del Method Room Air 05/14/25 04:00 Progress Note: Objective Labs Labs: Short CBC 05/14/25 Range/Units 05:10 WBC 3.9 L (4.0-11.0) 10^3/uL Hgb 9.2 L (14.0-18.0) g/dL Hct 26.6 L (42.0-54.0) % Plt Count 57 L (150-450) 10^3/uL BMP 05/13/25 05/14/25 20:00 05:10 Sodium 128 L 133 L Potassium 4.2 4.3 Chloride 100 101 Carbon Dioxide 26.0 24.4 BUN 36.0 H 30.0 H Creatinine 0.93 1.01 Glucose 120 H 141 H Calcium 7.9 L 8.4 L Liver Function 05/14/25 Range/Units 05:10 Total Bilirubin 2.1 H (0.2-1.0) mg/dL Direct Bilirubin 1.1 H* (0.0-0.2) mg/dL AST 44 H (15-37) U/L ALT 43 (16-63) U/L Alkaline Phosphatase 119 H (46-116) U/L Albumin 1.8 L (3.4-5.0) g/dL Progress Note: A&P Assessment and Plan (1) Hyponatremia: (2) Generalized weakness: Plan Hyponatremia which is likely caused by aggressive diuresis. Hypovolemic hyponatremia. TATYANA and hyperkalemia as well as metabolic acidosis. All believed to be caused by aggressive diuresis. Patient is also on metformin that could have caused lactic acidosis I had accepted to admit patient to the medical floor. Requested TSH rule out hypothyroidism, cortisol level rule out adrenal insufficiency, urine and serum osmolality. TSH is negative. The rest are pending. Start patient on water restriction. Start the patient on sodium chloride tablet. TATYANA, hyponatremia, metabolic acidosis all resolved. Streptococcus bacteremia. No obvious source. Urine is clean. Patient does not have respiratory symptoms. I suspect that patient may have SBP but patient does not have any tenderness in his abdomen minimal ascites of any I started patient on ceftriaxone and vancomycin Echocardiogram does not show any vegetation Risk of bowel perforation is high given the small amount of ascites Suspect bacteremia is related to bacterial translocation. Repeat blood culture today. CAT scan of the abdomen and pelvis to rule out any perforation. Hypomagnesemia Magnesium supplementation. Phosphorus level is normal. Generalized weakness and fatigue, likely caused by his acute metabolic derangement as listed above. I could not exclude the possibility of primary PUBLIC HEALTH MICROBIOLOGIST insult Requested CT head rule out acute intracranial process. Liver cirrhosis associated with elevated bilirubin. Baseline bilirubin is 2. Thrombocytopenia. Baseline platelets of 70. Patient is on a combination of cirrhosis medication including Xifaxan, spironolactone, lactulose and Coreg Hold diuretics and metformin due to his acute metabolic derangement as listed above. Continue Xifaxan and Coreg Added albumin and midodrine to help reduce risk having hepatorenal syndrome. Cachexia, frailty, failure to thrive, muscle wasting and atrophy, moderate protein calorie malnutrition Likely caused by chronic liver cirrhosis Avoid excessive protein oral intake that potentially put him at risk having encephalopathy. Patient may need cachexia and weight loss workup including ruling out the possib ility of underlying malignancy to be handled electively by PCP in the outpatient setting. Anemia, no evidence of acute blood loss. Likely related to ongoing liver cirrhosis Patient will likely require to have anemia workup to be done in the outpatient setting to be handled by PCP in collaboration with other needed outpatient providers. This may include but not limited to EGD, colonoscopy, referral to see hematology and other needed age-appropriate cancer screening. Functional?subtle cognitive impairment PT OT eval and treatment. Anticipate needing short-term skilled care. DVT prophylaxis SCD. Avoid pharmacological intervention due to thrombocytopenia with a platelet count at 57, liver cirrhosis and high possibility that may have esophageal varices Chronic, subacute medical conditions not listed above, abnormal labs and imaging, incidental findings seen on labs and or imaging. These would need to be addressed. Could be addressed later on or in the outpatient setting by PCP collaboration with other needed outpatient providers when time and condition are appropriate. I discussed this case with his on 05/13 and 05/14. I provided her information about his disease, prognosis, expectation and trajectory. stated that Renetta has had a gradual decline in cognition and function over the last year or so. She seems to be leaning toward comfort care approach. Urinary Catheter Management Urinary Catheter Management Straight: Cath placed during this visit: yes Urethral indwelling: No Insertion date: 05/12/25 Insertion time: 11:20
--- NOTE | 2025-05-14 11:33 | CM.NOTE ---
Important Message From Medicare discussed with pt, pt verbalizes understanding and signs paper. Original given to pt and copy placed on pt's chart.
[2025-05-14] MEDS: SODIUM CHLORIDE 1,000 MG TABLET 1000 MG PO ×2 (13:35→22:37)
[2025-05-14] MEDS: TORSEMIDE 20 MG TABLET 10 MG PO (18:35)
[2025-05-14] MEDS: ALBUMIN HUMAN 25 GM/100 ML PREMIX IV (18:35)
[2025-05-14] MEDS: PRIMIDONE 50 MG TABLET 25 MG PO (22:38)
[2025-05-15] VITALS (21 sets, daily range): BP systolic 94–119; BP diastolic 55–62; PULSE 60–84; TEMP 36.3–36.8; O2SAT 95–100
[2025-05-15] MEDS: LACTULOSE 10 GM/15 ML UD CUP 20 GM PO ×3 (06:19→22:30)
[2025-05-15] MEDS: SODIUM CHLORIDE 1,000 MG TABLET 1000 MG PO ×3 (06:19→22:31)
[2025-05-15 06:33] LABS: Hematocrit 26.2 % (42.0-54.0); Hemoglobin 9.0 g/dL (14.0-18.0); Mean Corpuscular HGB Conc 34.4 g/dL (29.9-35.2); Mean Corpuscular Hemoglobin 32.8 pg (25.9-34.0); Mean Corpuscular Volume 95.6 fL (80.0-94.0); Platelet Count 61 10^3/uL (150-450); Red Blood Count 2.74 10^6/uL (4.70-6.10); White Blood Count 4.0 10^3/uL (4.0-11.0)
[2025-05-15 06:49] LABS: Alanine Aminotransferase 33 U/L (16-63); Albumin Globulin Ratio 0.4; Albumin Level 1.9 g/dL (3.4-5.0); Alkaline Phosphatase 142 U/L (46-116); Anion Gap 8.1; Aspartate Amino Transferase 36 U/L (15-37); Blood Urea Nitrogen 19.0 mg/dL (7.0-18.0); Calcium 7.9 mg/dL (8.5-10.1); Carbon Dioxide 23.3 mmol/L (21.0-32.0); Chloride 101 mmol/L (98-107); Estimated GFR (African America >60 (>=60 mL/min/1.73m^2); Estimated GFR (Non-African Ame >60 (>=60 mL/min/1.73m^2); Globulin 4.4 g/dL; Glucose 226 mg/dL (74-106); Potassium 3.4 mmol/L (3.5-5.1); Sodium 129 mmol/L (136-145); Total Protein 6.3 g/dL (6.4-8.2)
[2025-05-15] MEDS: SPIRONOLACTONE 25 MG TABLET PO (08:35)
[2025-05-15] MEDS: RIFAXIMIN 550 MG TABLET PO ×2 (08:35→22:31)
[2025-05-15] MEDS: MIDODRINE HCL 5 MG TABLET PO ×3 (08:35→16:55)
[2025-05-15] MEDS: HEPARIN SODIUM (PORCINE) 5,000 UNIT/ML VIAL 5000 UNIT SUBQ ×2 (08:36→22:31)
[2025-05-15] MEDS: PANTOPRAZOLE SODIUM 40 MG TABLET.DR PO ×2 (08:36→22:31)
[2025-05-15] MEDS: TORSEMIDE 20 MG TABLET 10 MG PO (08:36)
[2025-05-15] MEDS: METRONIDAZOLE/SODIUM CHLORIDE 500 MG/100 ML PREMIX 100 MG IV ×2 (08:40→16:55)
[2025-05-15] MEDS: POTASSIUM CHLORIDE 10 MEQ ER TABLET 40 MEQ PO (08:40)
--- NOTE | 2025-05-15 10:02 | P.PN_ITS ---
Progress Note: Subjective Subjective Interval history: Patient is feeling a lot better. His stated that he looks better. He is more awake and coherent. He denies any pain or discomfort. Exam Narrative Exam Narrative: [pt is awake and alert. oriented to place, time and person, patient is cachectic and frail in appearance. HEENT: Pale conjunctiva and NL buccal mucosa. Bitemporal muscle wasting Neck: Supple, no tenderness Endocrine: No Thyromegaly. Vascular: No JVD or carotid bruit. Lymphatic: No cervical lymphadenopathy. Chest: CTA no DTP. Heart RRR, no extra sound or murmur. Abd: Soft, no tenderness, no rebound and no rigidity. Increase abd girth therefore clinically I could not exclude the possibility of intra abd mass or organomegaly. LE: No cyanosis or clubbing, no varices or edema. Upper and lower extremities muscle wasting and atrophy. Neuro: A A O. Nl speech, cognition is slightly impaired. Patient is able to answer yes/no questions and engage in simple conversation. Unable to engage in complex conversation. He is able to move his extremities symmetrically. []] Constitutional Vital Signs, click to edit/add: Last Vital Signs Temp 97.8 F 05/15/25 07:25 Pulse 66 05/15/25 10:00 Resp 18 05/15/25 04:00 BP 103/61 05/15/25 07:25 Pulse Ox 95 05/15/25 07:25 O2 Del Method Room Air 05/15/25 07:25 Progress Note: Objective Labs Labs: Short CBC 05/15/25 Range/Units 05:42 WBC 4.0 (4.0-11.0) 10^3/uL Hgb 9.0 L (14.0-18.0) g/dL Hct 26.2 L (42.0-54.0) % Plt Count 61 L (150-450) 10^3/uL BMP 05/15/25 05:42 Sodium 129 L Potassium 3.4 L Chloride 101 Carbon Dioxide 23.3 BUN 19.0 H Creatinine 1.09 Glucose 226 H Calcium 7.9 L Liver Function 05/15/25 Range/Units 05:42 Total Bilirubin 1.2 H (0.2-1.0) mg/dL Direct Bilirubin 0.6 H* (0.0-0.2) mg/dL AST 36 (15-37) U/L ALT 33 (16-63) U/L Alkaline Phosphatase 142 H (46-116) U/L Albumin 1.9 L (3.4-5.0) g/dL Progress Note: A&P Assessment and Plan (1) Hyponatremia: (2) Generalized weakness: Plan Hyponatremia which is likely caused by aggressive diuresis. Hypovolemic hyponatremia. TSH and cortisol level are within normal limit excluding hypothyroidism and adrenal insufficiency as a cause of his hyponatremia. Corrected. Resumed gentle diuresis. TATYANA and hyperkalemia as well as metabolic acidosis. All believed to be caused by aggressive diuresis. Patient is also on metformin that could have caused lactic acidosis Resolved. Resumed gentle diuresis. Streptococcus bacteremia. No obvious source. Urine is clean. Patient does not have respiratory symptoms. I suspect that patient may have SBP but patient does not have any tenderness in his abdomen minimal ascites of any I started patient on ceftriaxone and vancomycin Echocardiogram does not show any vegetation Ordered CAT scan of the abdomen which showed loculated ascites. Increased risk of blind paracentesis. Not sure if there is enough justification to transfer him to have ultrasound-guided paracentesis. CAT scan is positive for colon thickening. This could be causing transit bacterial translocation. Continue to treat the patient with IV antibiotic assuming that he has SBP. Continue ceftriaxone. Added Flagyl to cover anaerobes given colitis seen on CT Repeat blood cultures pending Portal vein thrombosis seen on CT. I discussed with the patient and his at length the treatment for PVT with anticoagulation in the setting of thrombocytopenia, history of esophageal banding, increased risk of the bleed. Risk of the bleed versus risk of a clot progression. I made it clear to patient and his that they need to make a decision based on their comfort level. stated that she would need to discuss this further with the patient and his kids before family makes final decision. Meanwhile I started patient on heparin subcu pending family's decision regarding anticoagulation. Hypomagnesemia Magnesium supplementation. Phosphorus level is normal. Generalized weakness and fatigue, likely caused by his acute metabolic derangement as listed above. I could not exclude the possibility of primary INSURANCE SALES ASSOCIATE insult Requested CT head rule out acute intracranial process. CT head does not show any acute intracranial process. Liver cirrhosis associated with elevated bilirubin. Baseline bilirubin is 2. Thrombocytopenia. Baseline platelets of 70. Patient is on a combination of cirrhosis medication including Xifaxan, spironolactone, lactulose and Coreg LFTs improving. Bilirubin is down from 2.1 to 1.2. Direct bilirubin is down from 1.1 to 0.6 Diuretics had been resumed. Metformin is on hold Continue Xifaxan and Coreg Added albumin and midodrine to help reduce risk having hepatorenal syndrome. Cachexia, frailty, failure to thrive, muscle wasting and atrophy, moderate protein calorie malnutrition Likely caused by chronic liver cirrhosis Avoid excessive protein oral intake that potentially put him at risk having encephalopathy. Patient may need cachexia and weight loss workup including ruling out the possibility of underlying malignancy to be handled electively by PCP in the outpatient setting. Anemia, no evidence of acute blood loss. Likely related to ongoing liver cirrhosis Patient will likely require to have anemia workup to be done in the outpatient setting to be handled by PCP in collaboration with other needed outpatient providers. This may include but not limited to EGD, colonoscopy, referral to see hematology and other needed age-appropriate cancer screening. Functional?subtle cognitive impairment PT OT eval and treatment. Anticipate needing short-term skilled care. DVT prophylaxis SCD. Waiting on family's decision regarding anticoagulation for portal vein thrombosis before starting full anticoagulation Chronic, subacute medical conditions not listed above, abnormal labs and imaging, incidental findings seen on labs and or imaging. These would need to be addressed. Could be addressed later on or in the outpatient setting by PCP collaboration with other needed outpatient providers when time and condition are appropriate. I discussed this case with his on 05/13, 05/14 and 05/15. I provided her information about his disease, prognosis, expectation and trajectory. stated that Renetta has had a gradual decline in cognition and function over the last year or so. She seems to be leaning toward comfort care approach. Urinary Catheter Management Urinary Catheter Management Straight: Cath placed during this visit: yes Urethral indwelling: No Insertion date: 05/12/25 Insertion time: 11:20
--- NOTE | 2025-05-15 10:54 | PT.DAILY ---
Physical Therapy Daily Note PT Daily Note/Assess Start: 05/14/25 15:24 Freq: Status: Active Protocol: Document 05/15/25 10:44 [id number] (Rec: 05/15/25 10:54 [id number] No Response) Physical Therapy Daily Note/Assessment Time In/Time Out Time In 08:31 Time Out 08:50 Pain In Pain Level 0 Pain Out Pain Level 0 Subjective Subjective Patient received supine in bed and agreeable to participate with PT. present for initial portion of treatment. Patient is on room air. Therapeutic Exercise Time Therapeutic Exercise 4 Minutes (minutes) Therapeutic Exercise 0 Units Therapeutic Exercise Treatment Therapeutic Exercise Patients SAT O2 level 98% prior to functional movement Treatment and HR 64. Seated EOB for ALISON LE ther ex to increase strength for return to PLOF. Heel/toe raises, LAQ, MRE hip ABD/ADD and marching 10 reps. Patient holds EOB for additional support and balance during LAQ and marching. Therapeutic Activity Time Therapeutic Activity 15 Minutes (minutes) Therapeutic Activity 1 Units Therapeutic Activity Treatment Bed Mobility Ability Standby Assistance Chair Transfer Standby Assistance Ability Therapeutic Activity Bed mobility: supine to R side lying to sit is SBA +1. Comments Does use R bed rail for assistance. Sitting balance fair to good. Keeps hands on bed for support. Completed seated ALISON LE ther ex. Sit to stand to 2WW is SBA +1. VC's for safe hand placement during transfer. Patient ambulated ~120' x 1 with 2WW and CGA +1. One episode of LOB while turning L in hallway. Required MIN A +1 to correct balance and maintain upright position. Patient seated in chair at bedside, CBWR and all needs met. Patient left in care of nursing. SAT O2 level 97% and HR 64 post ambulation. Total Physical Therapy Time Total Therapy 19 Minutes Total Physical 1 Therapy Units Summary Daily Note Summary Patient with increased ambulation distance w/ fatigue. Postural instability during turns during ambulation requiring MIN A +1 to correct. Patient would benefit from fpc upon discharge to address functional deficits for safety and return to PLOF.
[2025-05-15] MEDS: PRIMIDONE 50 MG TABLET 25 MG PO (22:31)
[2025-05-16] VITALS (17 sets, daily range): BP systolic 96–128; BP diastolic 54–68; PULSE 62–82; TEMP 36.5–36.9; O2SAT 94–98
[2025-05-16] MEDS: METRONIDAZOLE/SODIUM CHLORIDE 500 MG/100 ML PREMIX 100 MG IV ×3 (02:56→16:20)
[2025-05-16] MEDS: SODIUM CHLORIDE 1,000 MG TABLET 1000 MG PO ×3 (06:48→21:27)
[2025-05-16] MEDS: PANTOPRAZOLE SODIUM 40 MG TABLET.DR PO ×2 (08:53→21:28)
[2025-05-16] MEDS: RIFAXIMIN 550 MG TABLET PO ×2 (08:54→21:27)
[2025-05-16] MEDS: SPIRONOLACTONE 25 MG TABLET PO (08:54)
[2025-05-16] MEDS: MIDODRINE HCL 5 MG TABLET PO ×3 (08:54→16:19)
[2025-05-16] MEDS: TORSEMIDE 20 MG TABLET 10 MG PO (08:55)
[2025-05-16] MEDS: HEPARIN SODIUM (PORCINE) 5,000 UNIT/ML VIAL 5000 UNIT SUBQ (08:55)
--- NOTE | 2025-05-16 09:08 | PM.PN ---
Progress Note: Subjective Subjective Interval history: Patient is feeling excellent as he stated in his own words. 10 system review is negative for acute signs or symptoms Exam Narrative Exam Narrative: [pt is awake and alert. oriented to place, time and person, patient is cachectic and frail in appearance. HEENT: Pale conjunctiva and NL buccal mucosa. Bitemporal muscle wasting Neck: Supple, no tenderness Endocrine: No Thyromegaly. Vascular: No JVD or carotid bruit. Lymphatic: No cervical lymphadenopathy. Chest: CTA no DTP. Heart RRR, no extra sound or murmur. Abd: Soft, no tenderness, no rebound and no rigidity. Increase abd girth therefore clinically I could not exclude the possibility of intra abd mass or organomegaly. LE: No cyanosis or clubbing, no varices or edema. Upper and lower extremities muscle wasting and atrophy. Neuro: A A O. Nl speech, cognition is slightly impaired. Patient is able to answer yes/no questions and engage in simple conversation. Unable to engage in complex conversation. He is able to move his extremities symmetrically. []] Constitutional Vital Signs, click to edit/add: Last Vital Signs Temp 97.9 F 05/16/25 07:27 Pulse 67 05/16/25 08:13 Resp 16 05/16/25 03:24 BP 96/56 05/16/25 07:27 Pulse Ox 98 05/16/25 07:27 O2 Del Method Room Air 05/16/25 07:27 Progress Note: A&P Assessment and Plan (1) Hyponatremia: (2) Generalized weakness: Plan Hyponatremia which is likely caused by aggressive diuresis. Hypovolemic hyponatremia. TSH and cortisol level are within normal limit excluding hypothyroidism and adrenal insufficiency as a cause of his hyponatremia. Corrected. Resumed gentle diuresis. TATYANA and hyperkalemia as well as metabolic acidosis. All believed to be caused by aggressive diuresis. Patient is also on metformin that could have caused lactic acidosis Resolved. Resumed gentle diuresis. Streptococcus salivarius bacteremia. No obvious source. Urine is clean. Patient does not have respiratory symptoms. I suspect that patient may have SBP but patient does not have any tenderness in his abdomen. CAT scan showed small loculated ascites in the right upper quadrant. No tenderness in the right upper quadrant. I started patient on ceftriaxone and vancomycin. Vancomycin was later discontinued. Echocardiogram does not show any vegetation Ordered CAT scan of the abdomen which showed loculated ascites. Increased risk of blind paracentesis. Patient does not have any tenderness where the loculated ascites is. Not sure if there is enough justification to transfer him to have ultrasound-guided paracentesis. CAT scan is positive for colon thickening. This could be causing transit bacterial translocation. Streptococcus salivarius could be translocation from the oral cavity or GI tract into the bloodstream. Bacteria sensitive to ceftriaxone that he is on. Repeat culture is pending. Continue ceftriaxone. Continue Flagyl for anaerobic coverage for colitis seen radiologically Portal vein thrombosis seen on CT. I discussed with the patient and his at length the treatment for PVT with anticoagulation in the setting of thrombocytopenia, history of esophageal banding, increased risk of the bleed. Risk of the bleed versus risk of a clot progression. I had a long conversation with his about this on 05/15. I had a long conversation with the and his daughter today 05/16 about benefit and the risk of anticoagulation in setting of portal vein thrombosis, thrombocytopenia, known esophageal varices. I made it clear to patient, his daughter and his that they need to make a decision based on their comfort level. Patient is deferring the decision to be made by his and daughter. and daughter made the decision to proceed with anticoagulation starting with half dose over the next week or so. Monitor his hemoglobin and if no evidence of the bleed consideration will take a place to increase it up to full dose. Hypomagnesemia Magnesium supplementation. Phosphorus level is normal. Generalized weakness and fatigue, likely caused by his acute metabolic derangement as listed above. 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 CT head does not show any acute intracranial process. Liver cirrhosis associated with elevated bilirubin. Baseline bilirubin is 2. Thrombocytopenia. Baseline platelets of 70. Patient is on a combination of cirrhosis medication including Xifaxan, spironolactone, lactulose and Coreg LFTs improving. Bilirubin is down from 2.1 to 1.2. Direct bilirubin is down from 1.1 to 0.6 Diuretics had been resumed. Metformin is on hold Continue Xifaxan and Coreg Added albumin and midodrine to help reduce risk having hepatorenal syndrome. Cachexia, frailty, failure to thrive, muscle wasting and atrophy, moderate protein calorie malnutrition Likely caused by chronic liver cirrhosis Avoid excessive protein oral intake that potentially put him at risk having encephalopathy. Patient may need cachexia and weight loss workup including ruling out the possibility of underlying malignancy to be handled electively by PCP in the outpatient setting. Anemia, no evidence of acute blood loss. Likely related to ongoing liver cirrhosis Patient will likely require to have anemia workup to be done in the outpatient setting to be handled by PCP in collaboration with other needed outpatient providers. This may include but not limited to EGD, colonoscopy, referral to see hematology and other needed age-appropriate cancer screening. Functional?subtle cognitive impairment PT OT eval and treatment. Anticipate needing short-term skilled care. DVT prophylaxis SCD. Waiting on family's decision regarding anticoagulation for portal vein thrombosis before starting full anticoagulation Chronic, subacute medical conditions not listed above, abnormal labs and imaging, incidental findings seen on labs and or imaging. These would need to be addressed. Could be addressed later on or in the outpatient setting by PCP collaboration with other needed outpatient providers when time and condition are appropriate. I discussed this case with his on 05/13, 05/14 and 05/15 and 05/16 (with his and daughter ) . I provided her information about his disease, prognosis, expectation and trajectory. stated that Renetta has had a gradual decline in cognition and function over the last year or so. She seems to be leaning toward comfort care approach. Urinary Catheter Management Urinary Catheter Management Straight: Cath placed during this visit: yes Urethral indwelling: No Insertion date: 05/12/25 Insertion time: 11:20
--- NOTE | 2025-05-16 09:29 | W.ACP ---
Advance Care Planning Advance Care Planning Discussion Advance care planning discussion summary: Advance care planning and goals of care discussion Patient defers any decision related to his health to be made by his and daughter. and daughter gave me permission to proceed with conversation. Conversation lasted for about 20 minutes I provided them information about his disease, prognosis, expectation and trajectory. I answered all the questions We discussed his previously reported wishes. I explained in simple terms of the process of CPR in case of a cardiac or respiratory arrest including chest compressions, shocks, intubation and life support I explained in layman's terms the difference full code versus CCA. stated in basic terms that Renetta does not want any heroic measures such as resuscitative effort. No compression, shocks or life support. His wishes at this time as relayed to me by his are consistent with DNR-CCA status Change CODE STATUS accordingly.
[2025-05-16] MEDS: APIXABAN 5 MG TABLET 2.5 MG PO ×2 (09:32→21:27)
[2025-05-16] MEDS: LACTULOSE 10 GM/15 ML UD CUP 20 GM PO ×2 (14:27→21:27)
[2025-05-16] MEDS: PRIMIDONE 50 MG TABLET 25 MG PO (21:28)
[2025-05-17] VITALS (22 sets, daily range): BP systolic 104–126; BP diastolic 48–71; PULSE 61–100; TEMP 36.6–37.2; O2SAT 96–99
[2025-05-17] MEDS: METRONIDAZOLE/SODIUM CHLORIDE 500 MG/100 ML PREMIX 100 MG IV ×3 (00:42→18:30)
[2025-05-17] MEDS: SODIUM CHLORIDE 1,000 MG TABLET 1000 MG PO ×3 (06:01→21:51)
[2025-05-17 06:08] LABS: Hematocrit 25.4 % (42.0-54.0); Hemoglobin 8.6 g/dL (14.0-18.0); Mean Corpuscular HGB Conc 33.9 g/dL (29.9-35.2); Mean Corpuscular Hemoglobin 32.5 pg (25.9-34.0); Mean Corpuscular Volume 95.8 fL (80.0-94.0); Platelet Count 63 10^3/uL (150-450); Red Blood Count 2.65 10^6/uL (4.70-6.10); White Blood Count 3.9 10^3/uL (4.0-11.0)
[2025-05-17 06:34] LABS: Alanine Aminotransferase 31 U/L (16-63); Albumin Globulin Ratio 0.4; Albumin Level 1.7 g/dL (3.4-5.0); Alkaline Phosphatase 125 U/L (46-116); Anion Gap 8.9; Aspartate Amino Transferase 25 U/L (15-37); Blood Urea Nitrogen 13.0 mg/dL (7.0-18.0); Calcium 7.7 mg/dL (8.5-10.1); Carbon Dioxide 24.8 mmol/L (21.0-32.0); Chloride 106 mmol/L (98-107); Estimated GFR (African America >60 (>=60 mL/min/1.73m^2); Estimated GFR (Non-African Ame >60 (>=60 mL/min/1.73m^2); Globulin 4.3 g/dL; Glucose 236 mg/dL (74-106); Magnesium 1.4 mg/dL (1.8-2.4); Potassium 3.7 mmol/L (3.5-5.1); Sodium 136 mmol/L (136-145); Total Protein 6.0 g/dL (6.4-8.2)
--- NOTE | 2025-05-17 08:20 | CM.NOTE ---
Rounds made with Dr. Mesa, discussed plan of care with pt and . No discharge today, pt will have oncology consult 05/18. Pt will discharge to [facility] for skilled therapy when medically stable.
[2025-05-17] MEDS: TORSEMIDE 20 MG TABLET 10 MG PO (08:43)
[2025-05-17] MEDS: APIXABAN 5 MG TABLET 2.5 MG PO ×2 (08:43→21:50)
[2025-05-17] MEDS: PANTOPRAZOLE SODIUM 40 MG TABLET.DR PO ×2 (08:44→21:51)
[2025-05-17] MEDS: SPIRONOLACTONE 25 MG TABLET PO (08:44)
[2025-05-17] MEDS: RIFAXIMIN 550 MG TABLET PO ×2 (08:44→21:49)
[2025-05-17] MEDS: MIDODRINE HCL 5 MG TABLET PO ×3 (08:44→16:32)
--- NOTE | 2025-05-17 09:31 | SWNOTE1 ---
JULIAN spoke to CM and pt is not ready for discharge today. JULIAN updated Bebeto at [facility] and let her know that pt is not ready for discharge today. JULIAN faxed updates to the [facility] from the weekend. Updates included physician notes, labs, PT from 05/15, most recent vitals, and the last 12 hours of shift assessments.
[2025-05-17] MEDS: 0.9 % SODIUM CHLORIDE 250 ML 10 ML IV (09:55)
--- NOTE | 2025-05-17 10:24 | P.PN_ITS ---
Progress Note: Subjective Subjective Interval history: Patient is feeling great. He is up in the chair. No stomach or abdominal pain. No chest pain. No shortness of breath. Exam Narrative Exam Narrative: [pt is awake and alert. oriented to place, time and person, patient is cachectic and frail in appearance. No distress. HEENT: Pale conjunctiva and NL buccal mucosa. Bitemporal muscle wasting Neck: Supple, no tenderness Endocrine: No Thyromegaly. Vascular: No JVD or carotid bruit. Lymphatic: No cervical lymphadenopathy. Chest: CTA no DTP. Heart RRR, no extra sound or murmur. Abd: Soft, no tenderness, no rebound and no rigidity. Increase abd girth therefore clinically I could not exclude the possibility of intra abd mass or organomegaly. LE: No cyanosis or clubbing, no varices or edema. Upper and lower extremities muscle wasting and atrophy. Neuro: A A O. Nl speech, cognition is slightly impaired. Patient is able to answer yes/no questions and engage in simple conversation. Unable to engage in complex conversation. He is able to move his extremities symmetrically. []] Constitutional Vital Signs, click to edit/add: Last Vital Signs Temp 98.1 F 05/17/25 07:13 Pulse 88 05/17/25 09:59 Resp 18 05/17/25 07:13 BP 118/64 05/17/25 07:13 Pulse Ox 99 05/17/25 07:13 O2 Del Method Room Air 05/17/25 07:13 Progress Note: Objective Labs Labs: Short CBC 05/17/25 Range/Units 05:27 WBC 3.9 L (4.0-11.0) 10^3/uL Hgb 8.6 L (14.0-18.0) g/dL Hct 25.4 L (42.0-54.0) % Plt Count 63 L (150-450) 10^3/uL BMP 05/17/25 05:27 Sodium 136 Potassium 3.7 Chloride 106 Carbon Dioxide 24.8 BUN 13.0 Creatinine 0.93 Glucose 236 H Calcium 7.7 L Liver Function 05/17/25 Range/Units 05:27 Total Bilirubin 1.1 H (0.2-1.0) mg/dL Direct Bilirubin 0.6 H* (0.0-0.2) mg/dL AST 25 (15-37) U/L ALT 31 (16-63) U/L Alkaline Phosphatase 125 H (46-116) U/L Albumin 1.7 L (3.4-5.0) g/dL Progress Note: A&P Assessment and Plan (1) Hyponatremia: (2) Generalized weakness: Plan Hyponatremia, resolved. TSH and cortisol level are within normal limit excluding hypothyroidism and adrenal insufficiency as a cause of his hyponatremia. Corrected. Resumed gentle diuresis. TATYANA and hyperkalemia as well as metabolic acidosis. Resolved. All believed to be caused by aggressive diuresis. Patient is also on metformin that could have caused lactic acidosis Resolved. Resumed gentle diuresis. Streptococcus salivarius bacteremia. No obvious source. Urine is clean. Patient does not have respiratory symptoms. I suspect that patient may have SBP but patient does not have any tenderness in his abdomen. CAT scan showed small loculated ascites in the right upper quadrant. No tenderness in the right upper quadrant. I started patient on ceftriaxone and vancomycin. Vancomycin was later discontinued. Echocardiogram does not show any vegetation Ordered CAT scan of the abdomen which showed loculated ascites. Increased risk of blind paracentesis. Patient does not have any tenderness where the loculated ascites is. Not sure if there is enough justification to transfer him to have ultrasound-guided paracentesis specifically given no tenderness, rebound or rigidity on his abdomen. CAT scan is positive for colon thickening. This could be causing transit bacterial translocation. Streptococcus salivarius could be translocation from the oral cavity or GI tract into the bloodstream. Bacteria sensitive to ceftriaxone that he is on. Repeat culture is negative. Continue ceftriaxone. Continue Flagyl for anaerobic coverage for colitis seen radiologically Hypomagnesemia and hypophosphatemia Potassium and magnesium supplementation. Recheck level in AM. Portal vein thrombosis seen on CT. I discussed with the patient and his at length the treatment for PVT with anticoagulation in the setting of thrombocytopenia, history of esophageal banding, increased risk of the bleed. Risk of the bleed versus risk of a clot progression. I had a long conversation with his about this on 05/15. I had a long conversation with the and his daughter today 05/16 about benefit and the risk of anticoagulation in setting of portal vein thrombosis, thrombocytopenia, known esophageal varices. I made it clear to patient, his daughter and his that they need to make a decision based on their comfort level. Patient is deferring the decision to be made by his and daughter. and daughter made the decision to proceed with anticoagulation starting with half dose over the next week or so. Monitor his hemoglobin and if no evidence of the bleed consideration will take a place to increase it up to full dose. Requested heme-onc consultation to provide further advice and recommendation. Generalized weakness and fatigue, likely caused by his acute metabolic derangement as listed above. 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 CT head does not show any acute intracranial process. Liver cirrhosis associated with elevated bilirubin. Baseline bilirubin is 2. Thrombocytopenia. Baseline platelets of 70. Patient is on a combination of cirrhosis medication including Xifaxan, spironolactone, lactulose and Coreg LFTs improving. Bilirubin is down from 2.1 to 1.2. Direct bilirubin is down from 1.1 to 0.6 Diuretics had been resumed. Metformin is on hold Continue Xifaxan and Coreg Added albumin and midodrine to help reduce risk having hepatorenal syndrome. Cachexia, frailty, failure to thrive, muscle wasting and atrophy, moderate protein calorie malnutrition Likely caused by chronic liver cirrhosis Avoid excessive protein oral intake that potentially put him at risk having encephalopathy. Patient may need cachexia and weight loss workup including ruling out the possibility of underlying malignancy to be handled electively by PCP in the outpatient setting. Anemia, no evidence of acute blood loss. Likely related to ongoing liver cirrhosis Patient will likely require to have anemia workup to be done in the outpatient setting to be handled by PCP in collaboration with other needed outpatient providers. This may include but not limited to EGD, colonoscopy, referral to see hematology and other needed age-appropriate cancer screening. Functional?subtle cognitive impairment PT OT eval and treatment. Anticipate needing short-term skilled care. DVT prophylaxis SCD. Waiting on family's decision regarding anticoagulation for portal vein thrombosis before starting full anticoagulation Chronic, subacute medical conditions not listed above, abnormal labs and imaging, incidental findings seen on labs and or imaging. These would need to be addressed. Could be addressed later on or in the outpatient setting by PCP collaboration with other needed outpatient providers when time and condition are appropriate. I discussed this case with his on 05/13, , 05/15, 05/16 and 05/17 (with his and daughter ) . I provided her information about his disease, prognosis, expectation and trajectory. stated that Renetta has had a gradual decline in cognition and function over the last year or so. She seems to be leaning toward comfort care approach. Overall patient has poor prognosis given is liver cirrhosis with associated comorbidities as listed above. understood conversation related to his poor prognosis and accepting that the patient may not do well and no long run. Urinary Catheter Management Urinary Catheter Management Straight: Cath placed during this visit: yes Urethral indwelling: No Insertion date: 05/12/25 Insertion time: 11:20
[2025-05-17] MEDS: SOD PHOSPHATE,MONOBASIC-DIBAS 30 MMOL in 0.9 % SODIUM CHLORIDE 250 ML 43.333 MMOL IV (10:56)
--- NOTE | 2025-05-17 12:43 | SWNOTE1 ---
JULIAN faxed PT/OT from today and physician note from today to Mikaela at [facility]. JULIAN reviewed pt's HCPOA and Living Will that he completed with his . JULIAN and CM witnessed and signed HCPOA and Living Will. Copy placed in chart and original given back to pt.
[2025-05-17] MEDS: MAGNESIUM SULFATE IN WATER 4 GM/100 ML PIGGYBACK IV (16:32)
[2025-05-17 17:08] LABS: Osmolality, Urine 699 mOsmol/kg (.)
[2025-05-17] MEDS: PRIMIDONE 50 MG TABLET 25 MG PO (21:49)
[2025-05-17] MEDS: LACTULOSE 10 GM/15 ML UD CUP 20 GM PO (21:49)
[2025-05-18] VITALS (10 sets, daily range): BP systolic 97–128; BP diastolic 43–68; PULSE 65–88; TEMP 36.5–36.9; O2SAT 92–97
[2025-05-18] MEDS: METRONIDAZOLE/SODIUM CHLORIDE 500 MG/100 ML PREMIX 100 MG IV ×2 (02:29→10:16)
[2025-05-18 05:35] LABS: Hematocrit 24.0 % (42.0-54.0); Hemoglobin 8.2 g/dL (14.0-18.0); Mean Corpuscular HGB Conc 34.2 g/dL (29.9-35.2); Mean Corpuscular Hemoglobin 32.4 pg (25.9-34.0); Mean Corpuscular Volume 94.9 fL (80.0-94.0); Platelet Count 61 10^3/uL (150-450); Red Blood Count 2.53 10^6/uL (4.70-6.10); White Blood Count 4.0 10^3/uL (4.0-11.0)
[2025-05-18 05:54] LABS: Magnesium 1.8 mg/dL (1.8-2.4)
[2025-05-18 05:55] LABS: Chloride 104 mmol/L (98-107); Potassium 3.4 mmol/L (3.5-5.1); Sodium 134 mmol/L (136-145)
[2025-05-18 05:56] LABS: Alanine Aminotransferase 27 U/L (16-63); Albumin Globulin Ratio 0.4; Albumin Level 1.7 g/dL (3.4-5.0); Alkaline Phosphatase 119 U/L (46-116); Anion Gap 6.8; Aspartate Amino Transferase 23 U/L (15-37); Blood Urea Nitrogen 10.0 mg/dL (7.0-18.0); Calcium 7.8 mg/dL (8.5-10.1); Carbon Dioxide 26.6 mmol/L (21.0-32.0); Estimated GFR (African America >60 (>=60 mL/min/1.73m^2); Estimated GFR (Non-African Ame >60 (>=60 mL/min/1.73m^2); Globulin 4.2 g/dL; Glucose 121 mg/dL (74-106); Total Protein 5.9 g/dL (6.4-8.2)
[2025-05-18] MEDS: SODIUM CHLORIDE 1,000 MG TABLET 1000 MG PO ×2 (06:27→13:34)
[2025-05-18] MEDS: LACTULOSE 10 GM/15 ML UD CUP 20 GM PO (06:27)
[2025-05-18] MEDS: MIDODRINE HCL 5 MG TABLET PO ×2 (08:21→12:22)
[2025-05-18] MEDS: SPIRONOLACTONE 25 MG TABLET PO (08:21)
[2025-05-18] MEDS: PANTOPRAZOLE SODIUM 40 MG TABLET.DR PO (08:22)
[2025-05-18] MEDS: APIXABAN 5 MG TABLET 2.5 MG PO (08:22)
[2025-05-18] MEDS: RIFAXIMIN 550 MG TABLET PO (08:22)
[2025-05-18] MEDS: TORSEMIDE 20 MG TABLET 10 MG PO (08:22)
--- NOTE | 2025-05-18 08:50 | CM.NOTE ---
Rounds made with Dr. Mesa, pt will discharge to [facility] for skilled therapy today. Pt will need f/u with Dr. Trivedi, will call to verify pt's appt for June 25 prior to discharge.
--- NOTE | 2025-05-18 09:10 | SWNOTE1 ---
SW faxed DNR, HCPOA, and Living Will to Esther at [facility].
--- NOTE | 2025-05-18 10:00 | CM.NOTE ---
2nd Important Message From [employer] discussed with pt and , denies questions or concerns.
[2025-05-18] MEDS: POTASSIUM CHLORIDE 10 MEQ ER TABLET 40 MEQ PO (10:16)
--- NOTE | 2025-05-18 10:38 | SWNOTE1 ---
[facility] is ready for patient once discharge orders are in.
--- NOTE | 2025-05-18 12:16 | PM.DS1 ---
DS: Providers Provider Date of admission: 05/12/25 14:09 Primary care physician: Robin Valenzuela DO Consults: 05/12/25 14:09 Occupational Therapy Eval and Treat Routine Reason for consultation: Weakness Physical Therapy Eval and Treat Routine Reason for consultation: Weakness 05/13/25 09:42 Occupational Therapy Eval and Treat Routine Reason for consultation: Weakness Physical Therapy Eval and Treat Routine Reason for consultation: Weakness 05/16/25 16:29 Consult to Oncology Routine Consulting Provider: Erika Rivers Reason for consultation: Portal vein thrombosis and thrombocytopenia DS: Diagnosis Discharge Diagnosis (1) Hyponatremia: (2) Generalized weakness: Plan As listed above, below and others that are not listed DS: Summary Hospital Course Hospital Course: Mr. Sandovla is a 69-year-old gentleman who came in not feeling well and was found to have the following: Hyponatremia, resolved. TSH and cortisol level are within normal limit excluding hypothyroidism and adrenal insufficiency as a cause of his hyponatremia. Corrected. Resumed gentle diuresis. Sodium chloride tablet titration at the nursing facility to keep sodium level above 132 I requested from the custodial providers to order BMP every Saturday and Saturday to monitor his sodium and electrolytes TATYANA and hyperkalemia as well as metabolic acidosis. Resolved. All believed to be caused by aggressive diuresis. Patient is also on metformin that could have caused lactic acidosis Resolved. Resumed gentle diuresis. Streptococcus salivarius bacteremia. No obvious source. Urine is clean. Patient does not have respiratory symptoms. I suspect that patient may have SBP but patient does not have any tenderness in his abdomen. CAT scan showed small loculated ascites in the right upper quadrant. No tenderness in the right upper quadrant. I started patient on ceftriaxone and vancomycin. Vancomycin was later discontinued. Echocardiogram does not show any vegetation Ordered CAT scan of the abdomen which showed loculated ascites. Increased risk of blind paracentesis. Patient does not have any tenderness where the loculated ascites is. Not sure if there is enough justification to transfer him to have ultrasound-guided paracentesis specifically given no tenderness, rebound or rigidity on his abdomen. CAT scan is positive for colon thickening. This could be causing transit bacterial translocation. Streptococcus salivarius could be translocation from the oral cavity or GI tract into the bloodstream. Bacteria sensitive to ceftriaxone that he is on. Repeat culture is negative. Continue ceftriaxone. Continue Flagyl for anaerobic coverage for colitis seen radiologically Patient will be discharged on oral Augmentin for 14 days. That is for Streptococcus bacteremia and for colitis Probiotic will be added on. Patient may need to have endoscopy to be addressed by his GI specialist at [facility]. Hypomagnesemia and hypophosphatemia Potassium, phosphorus and magnesium supplementation. BMP every Saturday and Saturday to monitor his electrolytes at the custodial. Portal vein thrombosis seen on CT. I discussed with the patient and his at length the treatment for PVT with anticoagulation in the setting of thrombocytopenia, history of esophageal banding, increased risk of the bleed. Risk of the bleed versus risk of a clot progression. I had a long conversation with his about this on 05/15. I had a long conversation with the and his daughter today 05/16 and on 05/17 and 05/18 about benefit and the risk of anticoagulation in setting of portal vein thrombosis, thrombocytopenia, known esophageal varices. I made it clear to patient, his daughter and his that they need to make a decision based on their comfort level. Patient is deferring the decision to be made by his and daughter. and daughter made the decision to proceed with anticoagulation starting with half dose over the next week or so. Eliquis 2.5 mg twice a day. I called and discussed his case with rectification printer Dr. Rivers. I provided him information about the patient's cirrhosis, low platelets and evidence of portal venous thrombosis. He stated obviously that the patient is at risk of clot progression and that risk of the bleed He stated, ultimately it is the final decision will be the patient and family decision after they understood very well the risk of clot progression and risk of bleed. I informed him about 's decision to proceed with low-dose anticoagulation, Eliquis 2.5 twice a day. He is comfortable with that and stated that this decision is reasonable. He recommended repeat portal vein ultrasound in 3 months to monitor progression and/or resolution. I requested an outpatient portal vein ultrasound to be done in 3 months and the result is to be communicated to his GI/commodity management specialist at [facility] Dr. Trivedi. He has an appointment coming up with him early June. Patient will be on a PPI for GI bleed prophylaxis. I instructed custodial provider to order CBC every Saturday and Saturday to monitor his hemoglobin and platelets. Generalized weakness and fatigue, likely caused by his acute metabolic derangement as listed above. 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 CT head does not show any acute intracranial process. Liver cirrhosis associated with elevated bilirubin. Baseline bilirubin is 2. Thrombocytopenia. Baseline platelets of 70. MELD score is 15 Patient is on a combination of cirrhosis medication including Xifaxan, spironolactone, lactulose and Coreg LFTs improving. Bilirubin is down from 2.1 to 1.2. Direct bilirubin is down from 1.1 to 0.6 Diuretics had been resumed. Metformin is on hold Continue Xifaxan and Coreg Added albumin and midodrine to help reduce risk having hepatorenal syndrome. Patient will be discharged home on midodrine as well as Demadex 10 mg daily and Aldactone 25 mg twice daily. Cachexia, frailty, failure to thrive, muscle wasting and atrophy, moderate protein calorie malnutrition Likely caused by chronic liver cirrhosis Avoid excessive protein oral intake that potentially put him at risk having encephalopathy. Patient may need cachexia and weight loss workup including ruling out the possibility of underlying malignancy to be handled electively by PCP in the outpatient setting. Anemia, no evidence of acute blood loss. Likely related to ongoing liver cirrhosis Patient will likely require to have anemia workup to be done in the outpatient setting to be handled by PCP in collaboration with other needed outpatient providers. This may include but not limited to EGD, colonoscopy, referral to see hematology and other needed age-appropriate cancer screening. Patient follows up with GI at [facility]. He has an appointment coming up early June. Functional?subtle cognitive impairment PT OT eval and treatment. Anticipate needing short-term skilled care. DVT prophylaxis SCD. Waiting on family's decision regarding anticoagulation for portal vein thrombosis before starting full anticoagulation Chronic, subacute medical conditions not listed above, abnormal labs and imaging, incidental findings seen on labs and or imaging. These would need to be addressed. Could be addressed later on or in the outpatient setting by PCP collaboration with other needed outpatient providers when time and condition are appropriate. I discussed this case with his on 05/13, , 05/15, 05/16 and 05/17 (with his and daughter ) . I provided her information about his disease, prognosis, expectation and trajectory. stated that Renetta has had a gradual decline in cognition and function over the last year or so. She seems to be leaning toward comfort care approach. Overall patient has poor prognosis given is liver cirrhosis with associated comorbidities as listed above. understood conversation related to his poor prognosis and accepting that the patient may not do well and no long run. Patient has multiple complex medical issues as listed above and others that are not listed. All appear to be stable. Patient is asymptomatic. Patient stated that he feels great and ready to leave the hospital and start his rehabilitation. Patient has been accepted to be admitted to a skilled facility for short-term physical therapy rehabilitation. I do not have any clear or strong clinical justification to extend inpatient hospitalization. Patient however will require close and frequent monitoring as well as additional work-up, investigation and therapeutic intervention that could take place from this point on post discharge. That is to prevent relapse, decompensation, rehospitalization and other medical implications. Discharge medications as listed are not final or set in stone. Primary care doctor and other out patient providers will need to titrate and adjust medications as soon as the first post discharge visit based on clinical progression, vitals signs, volume status and other related organs function. I instructed patient to ask her primary care doctor to obtain [facility] record entirely to address abnormalities seen on labs and imaging that I have and have not addressed during this hospitalization, follow-up on pending blood work, imaging and pathology is if available and to follow-up on needed medical care in the outpatient setting. Once again the patient is stable however he has poor prognosis given the complexity of his medical issues as listed above. He is at risk of decompensation. is made aware of that and ready psychologically to accept what ever comes next. Time Spent with Patient Time attestation: Total time spent providing and/or coordinating discharge services: Time spent: greater than 30 minutes Exam Narrative Exam Narrative: [pt is awake and alert. oriented to place, time and person, patient is cachectic and frail in appearance. No distress. Patient reported that he feels great and ready to leave the hospital to start his rehabilitation. HEENT: Pale conjunctiva and NL buccal mucosa. Bitemporal muscle wasting Neck: Supple, no tenderness Endocrine: No Thyromegaly. Vascular: No JVD or carotid bruit. Lymphatic: No cervical lymphadenopathy. Chest: CTA no DTP. Heart RRR, no extra sound or murmur. Abd: Soft, no tenderness, no rebound and no rigidity. Increase abd girth therefore clinically I could not exclude the possibility of intra abd mass or organomegaly. LE: No cyanosis or clubbing, no varices or edema. Upper and lower extremities muscle wasting and atrophy. Neuro: A A O. Nl speech, cognition is slightly impaired. Patient is able to answer yes/no questions and engage in simple conversation. Unable to engage in complex conversation. He is able to move his extremities symmetrically. []] Constitutional Vital Signs, click to edit/add: Last Vital Signs Temp 97.7 F 05/18/25 07:15 Pulse 88 05/18/25 09:55 Resp 18 05/18/25 07:15 BP 101/58 05/18/25 07:15 Pulse Ox 92 L 05/18/25 07:15 O2 Del Method Room Air 05/18/25 07:15 DS: Data Data Completed and Pending Labs on day of discharge: Labs from last 24 hours 05/18/25 05/12/25 05:10 11:25 WBC 4.0 RBC 2.53 L Hgb 8.2 L Hct 24.0 L MCV 94.9 H MCH 32.4 MCHC 34.2 RDW 14.4 Plt Count 61 L MPV 11.0 Sodium 134 L Potassium 3.4 L Chloride 104 Carbon Dioxide 26.6 Anion Gap 6.8 BUN 10.0 Creatinine 0.75 Est GFR ( Amer) >60 Est GFR (Non-Af Amer) >60 BUN/Creatinine Ratio 13.3 Glucose 121 H Calcium 7.8 L Phosphorus 3.1 Magnesium 1.8 Total Bilirubin 1.4 H AST 23 ALT 27 Alkaline Phosphatase 119 H Total Protein 5.9 L Albumin 1.7 L Globulin 4.2 Albumin/Globulin Ratio 0.4 Urine Osmolality 699 Preliminary micro results at discharge 05/14/25 10:59 Blood Culture Result 2 - Preliminary Blood - Left Hand NO GROWTH AT 36-48 HOURS. FINAL TO FOLLOW. 05/14/25 10:54 Blood Culture Result 1 - Preliminary Blood - Left Antecubital NO GROWTH AT 36-48 HOURS. FINAL TO FOLLOW. 05/12/25 09:58 Blood Culture Result 2 - Preliminary Blood - Left Hand Discharge Plan Discharge Disposition: Xfer SNF Condition: Fair Discharge Medications: New sennosides-docusate sodium 8.6-50 mg Tablet 1 tab PO QD PRN (Reason: Constipation) Qty: 0 0RF midodrine 5 mg Tablet 5 mg PO TIDWM Qty: 0 0RF spironolactone 25 mg Tablet 25 mg PO BID Qty: 0 0RF docusate sodium 100 mg Capsule 200 mg PO BID PRN (Reason: Constipation) Qty: 0 0RF lactulose 10 gram/15 mL Solution 20 g PO TID Qty: 0 0RF torsemide 10 mg tablet 10 mg PO QD Qty: 30 0RF sodium chloride 1,000 mg Tablet,Soluble 1,000 mg PO BID Qty: 0 0RF amoxicillin-pot clavulanate 875-125 mg tablet 1 tab PO BID 14 Days Qty: 28 0RF Probiotic 3 billion cell capsule 3,000 mmu cells PO BID 20 Days Qty: 40 0RF Rx Instructions: administer with a meal magnesium oxide 400 mg magnesium tablet 400 mg PO DAILY Qty: 30 0RF apixaban 2.5 mg tablet 2.5 mg PO BID Qty: 60 3RF Continued primidone 50 mg tablet 25 mg PO .QHS pantoprazole 40 mg tablet,delayed release (DR/EC) 40 mg PO BID Xifaxan 550 mg tablet 550 mg PO BID Discontinued lactulose 20 gram packet 30 ml PO TID furosemide 40 mg tablet 40 mg PO DAILY metformin 500 mg tablet 500 mg PO BID spironolactone 100 mg tablet 100 mg PO DAILY All Day Allergy (cetirizine) 10 mg capsule 10 mg PO DAILY PRN (Reason: allergy symptoms) benzonatate 100 mg capsule 100 mg PO TID PRN (Reason: cough) carvedilol [Coreg] 3.125 mg tablet 3.125 mg PO BID Rx Instructions: must administer with a meal/food nystatin 100,000 unit/gram powder 1 applic topical DAILY prednisone 20 mg tablet 60 mg PO DAILY Rx Instructions: last dose due on 05/13/25 Print Language: Guamanian Activity Restrictions/Additional Instructions: I may not have addressed or treated all of your medical illnesses or the abnormal blood work or imaging studies during this hospitalization. Please ask your primary care provider to obtain [facility] records entirely to follow up on all of the abnormal physical, laboratory, and imaging findings that I have not addressed. Please return back to the emergency room or seek medical attention if your symptoms worsen or return. Discharging you from [facility] does not mean that your medical care ends here and now. You may still need additional monitoring, work up, investigation, and treatment plan to be handled from this point on by out patient providers including your primary care provider and specialists. For custodial providers Patient is DNR CCA, no shocks, intubation or chest compressions in case of a cardiac or respiratory arrest BMP and CBC every Saturday and Saturday to monitor his electrolytes, sodium, kidney function, WBC and hemoglobin Titrate his medications to keep patient in a euvolemic state and electrolytes within normal limit Monitor his hemoglobin level. Monitor his stool color to make sure there is no melena or bloody stool or black-colored stool Fall precautions Adjust his lactulose so patient can have at least 1-2 bowel movements every 24 hours Adjust sodium chloride tablet to keep sodium above 132 For any medication question, please contact your retail pharmacist or your primary care provider. Thank you. 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 Trivedi ([facility]) - Sat. 06/25 @ 8am [facility] [address] [phone]
--- NOTE | 2025-05-18 12:19 | CM.NOTE ---
Quang barrientos sent to Dr. Mesa with susceptibility on blood culture.
--- NOTE | 2025-05-18 12:36 | SWNOTE1 ---
JULIAN faxed dc med rec to Esther at [facility]. JULIAN also sent the outpt testing order form to [facility] as well. JULIAN called and set up trips and they will be here between 1:45-2:15. JULIAN notified pt's nurse and pt's of discharge time. JULIAN also faxed PT/Ot from today, most recent labs and vitals to [facility]. Pt is going there skilled. JULIAN completed HENS [id number] online. JULIAN took CRF to med/surge floor and put in nurses mail slot. JULIAN took packet out as well.
--- NOTE | 2025-05-18 13:40 | CM.NOTE ---
CM completed CRF and signed by Dr. Mesa. Radiology requisition completed for repeat ultrasound in 3 months, given to and faxed to Central[facility] scheduling.
--- NOTE | 2025-05-18 14:03 | PC.NURSE ---
report given to lacey courtney, all questions answered
== END 2025-05-18 13:50 | DRG 640 ==
LOC: ER 12:02 → MS 13:07
PROVIDERS: Admitting Provider Internal Medicine; Emergency Provider Emergency Medicine; PCP Family Medicine; Visit Provider Internal Medicine
DX: E87.1 Hypo-osmolality and hyponatremia (principal); I81 Portal vein thrombosis; K65.2 Spontaneous bacterial peritonitis; R78.81 Bacteremia; N17.9 Acute kidney failure, unspecified; E44.0 Moderate protein-calorie malnutrition; R64 Cachexia; E87.20 Acidosis, unspecified; R62.7 Adult failure to thrive; K70.31 Alcoholic cirrhosis of liver with ascites; R53.1 Weakness; E87.5 Hyperkalemia; D69.6 Thrombocytopenia, unspecified; D63.8 Anemia in other chronic diseases classified elsewhere; Z66 Do not resuscitate; E83.39 Other disorders of phosphorus metabolism; Z79.84 Long term (current) use of oral hypoglycemic drugs; E83.42 Hypomagnesemia; K52.9 Noninfective gastroenteritis and colitis, unspecified; R53.83 Other fatigue; E80.6 Other disorders of bilirubin metabolism; Z79.899 Other long term (current) drug therapy; Z68.24 Body mass index [BMI] 24.0-24.9, adult; M62.58 Muscle wasting and atrophy, not elsewhere classified, other site; B95.4 Other streptococcus as the cause of diseases classified elsewhere
CPT/HCPCS: 36415; 70450; 71045; 72131; 74177; 76376; 80048; 80053; 80076; 81001; 82140; 82150; 82533; 83690; 83735; 83930; 83935; 84100; 84443; 84484; 85025; 85027; 85610; 87040; 87076; 87077; 87086; 87150; 87186; 93005; 93306; 97110; 97162; 97165; 97530; 97535; 99285; J0696; J1644; J1836; J1938; J3373; J3475; P9046; Q9967